=== PATIENT | female | born 1960 | race Caucasian/White ===

== ENCOUNTER 2020-02-15 15:20 | Outpatient (CLI) | payer BC, SELFPAY ==
--- NOTE | ~2020-02-15 | MM_ITS ---
EXAMINATION: MM scrn merritt implant BI w snow HISTORY: Screening mammogram TECHNIQUE: Craniocaudal and mediolateral oblique 3-D tomosynthesis images with implant displacement a nd synthetic 2-D images were generated. Craniocaudal and mediolateral oblique views of the breasts wi thout implant displacement were obtained using full field digital mammography. CAD analysis was submi tted and interpreted. COMPARISON: 12/02/2018, 11/23/2017, 03/30/2016 bilateral implant screening mammogram examinations BREAST PARENCHYMAL COMPOSITION: The breasts are almost entirely fatty. FINDINGS: Status post bilateral augmentation mammoplasty. There is no evidence of suspicious mass, ca lcification, or architectural distortion to suggest malignancy in either breast. There has been no morejon spicious interval change. IMPRESSION: 1. No mammographic evidence of malignancy. 2. Recommend routine screening mammography in one year. BI-RADS Category 1: Negative Reviewed, dictated and finalized at location A.
== END 2020-02-15 15:21 | disposition home or self-care (01) ==
LOC: ANHIMG 15:23
PROVIDERS: PCP Family Medicine; Visit Provider Student in an Organized Health Care Education/Training Program
DX: Z12.31 Encounter for screening mammogram for malignant neoplasm of breast (principal)
CPT/HCPCS: 77063; 77067

== ENCOUNTER 2020-04-29 07:43 | Outpatient (CLI) | payer BC, SELFPAY ==
--- NOTE | ~2020-04-29 | DEXA_ITS ---
Bone Density Report Name: Shannon Long Age: 60 Sex: Female Ethnicity: White Date of : 1960 Indication: postmenopausal; hysterectomy; Referring Provider: Tiara Ch Study: Bone densitometry was performed. Exam Date: April 29, 2020 Accession number: [id number] Bone Density: Region BMD T-score Z-score Classification AP Spine (L1-L4) 1.214 1.5 2.8 Normal Femoral Neck (Right) 0.758 -0.8 0.4 Normal Total Hip (Right) 0.946 0.0 0.9 Normal World Health Organization criteria for BMD impression classify patients as: Normal (T-score at or above -1.0), Osteopenia (T-score between -1.0 and -2.5), or Osteoporosis (T-score at or below -2.5). 10-year Fracture Risk: FRAX not reported because: All T-scores for Spine Total, Hip Total, Femoral Neck at or above -1.0 Previous Exams: Region Exam Age BMD T-score BMD Change BMD Change Date g/cm2 vs Baseline vs Previous AP Spine(L1-L4) 04/29/2020 60 1.214 1.5 0.169(16.1%)# 0.032(2.7%)* 04/18/2018 58 1.182 1.2 0.137(13.1%)# 0.035(3.1%)* 03/30/2016 56 1.147 0.9 0.102(9.7%)# 0.102(9.7%)# 11/29/2007 47 1.045 0.0 Total Hip(Right) 04/29/2020 60 0.946 0.0 0.044(4.8%)# -0.009(-1.0%) 04/18/2018 58 0.955 0.1 0.053(5.9%)# 0.014(1.5%) 03/30/2016 56 0.941 0.0 0.039(4.3%)# 0.039(4.3%)# 11/29/2007 47 0.902 -0.3 *Denotes significance at 95% confidence level, LSC for AP Spine = 0.022 g/cm2, LSC for Total Hip = 0.027 g/cm2 Clinical Information Provided by Patient: Has used the following medications: HRT (i.e. estrogen/hormone therapy), Calcium Has the following medical conditions: Hysterectomy Patient maximum height was 62.5 Menopause Age: 44 Drinks caffeinated beverages Onset of menses at age 16 Number of children 2 Impression: The patient has normal bone mass. No significant bone loss was observed. Discussion: BONE DENSITY IS ABOVE THE MINIMUM DESIRABLE LEVEL AT ALL SKELETAL SITES TESTED. This patient?s bone mineral density is above the minimum desirable level (T-score -1.0 or better) at all sites measured. The patient should follow a healthful lifestyle (good nutrition with adequate calcium and vitamin D, and appropriate weight-bearing exercise). Follow-Up: Consider repeating this study in 5 years or sooner if there is some new clinical indication. Reported by: JUD on 04/29/2020 8:25:00 AM. Reviewed, dictated and finalized at location Jean Claude GONSALES
== END 2020-04-29 07:44 | disposition home or self-care (01) ==
PROVIDERS: PCP Family Medicine; Visit Provider Student in an Organized Health Care Education/Training Program
DX: Z78.0 Asymptomatic menopausal state (principal)
CPT/HCPCS: 77080

== ENCOUNTER 2020-06-18 06:33 | Outpatient (CLI) | payer BC, SELFPAY ==
--- NOTE | ~2020-06-18 | XR_ITS ---
XR shoulder RT min 2V DATE: 06/18/2020 06:58 INDICATION: Bilateral shoulder pain for months. No injury. TECHNIQUE: 4 views of right shoulder COMPARISON: None FINDINGS: There is mild degenerative change of the right acromioclavicular joint. No fracture or disl ocation, periosteal reaction or bone destruction or abnormal soft tissue calcification. There is moderate dextroscoliosis of the upper thoracic spine IMPRESSION: Mild degenerative change at right acromioclavicular joint Reviewed, dictated and finalized at location A.
--- NOTE | ~2020-06-18 | XR_ITS ---
XR shoulder LT min 2V DATE: 06/18/2020 06:59 INDICATION: Bilateral shoulder pain for months. No injury. TECHNIQUE: 4 views COMPARISON: None FINDINGS: There is mild thoracic scoliosis. There is mild degenerative change of the left acromion clavicular joint. No fracture or dislocation, periosteal reaction or bone destruction or abnormal soft tissue calcifica tion of the left shoulder. IMPRESSION: Mild degenerative change at left acromioclavicular joint Thoracic scoliosis Reviewed, dictated and finalized at location A.
== END 2020-06-18 06:34 | disposition home or self-care (01) ==
PROVIDERS: PCP Family Medicine; Visit Provider Chiropractor
DX: M19.011 Primary osteoarthritis, right shoulder (principal); M19.012 Primary osteoarthritis, left shoulder; M41.9 Scoliosis, unspecified
CPT/HCPCS: 73030

== ENCOUNTER 2020-09-02 07:03 | Outpatient (CLI) | payer BC, SELFPAY ==
--- NOTE | ~2020-09-02 | XR_ITS ---
EXAMINATION: XR foot LT standing 2V EXAM DATE: 09/02/2020 07:27 INDICATION: M25.9 - Joint disorder, unspecified. TECHNIQUE: Frontal and lateral projections of the left foot. Correlation is made to contralateral fo ot same date. FINDINGS: There is mild left 1st metatarsophalangeal joint primary osteoarthritis. Small inferior c alcaneal spur. Pes planus. There are no acute fractures or dislocations identified. There is no subc utaneous gas. The soft tissue is unremarkable. There are no radiopaque foreign bodies. IMPRESSION: 1. 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 2. Pes planus. Reviewed, dictated and finalized at location B. MODEL
--- NOTE | ~2020-09-02 | XR_ITS ---
EXAMINATION: XR foot RT standing 2V EXAM DATE: 09/02/2020 07:27 INDICATION: M25.9 - Joint disorder, unspecified pain in rt foot lateral. TECHNIQUE: Frontal and lateral projections of the right foot. Correlation is made to contralateral f oot same date. FINDINGS: Surgical changes at the 1st metatarsophalangeal joint, prior osteotomies probably correcti ng hallux and/or bunion. Correlate with prior history. There is severe osteoarthritis (probably secon stanley) at this joint. Small inferior calcaneal spur. Subacute right 3rd proximal phalangeal shaft fracture without displacement. IMPRESSION: 1. Right 3rd proximal phalangeal shaft subacute fracture. 2. 1st MTP severe osteoarthritis, surgical changes. Reviewed, dictated and finalized at location B. E TAILER
== END 2020-09-02 07:04 | disposition home or self-care (01) ==
PROVIDERS: PCP Family Medicine; Visit Provider Internal Medicine
DX: M19.072 Primary osteoarthritis, left ankle and foot (principal); M19.071 Primary osteoarthritis, right ankle and foot; S92.511A Displaced fracture of proximal phalanx of right lesser toe(s), initial encounter for closed fracture; X58.XXXA Exposure to other specified factors, initial encounter
CPT/HCPCS: 73620

== ENCOUNTER 2020-09-02 13:56 | Outpatient (CLI) | payer BC, SELFPAY ==
[2020-09-02 15:14] LABS: Rheumatoid Factor < 8.6 IU/ML (<12)
[2020-09-04 22:06] LABS: Anti Cyclic Citrullinated Pept <16 Units (<20)
== END 2020-09-02 13:57 | disposition home or self-care (01) ==
LOC: ANHLAB 13:57
PROVIDERS: PCP Family Medicine; Visit Provider Internal Medicine
DX: M19.90 Unspecified osteoarthritis, unspecified site (principal); M25.9 Joint disorder, unspecified; M79.671 Pain in right foot
CPT/HCPCS: 36415; 86200; 86430

== ENCOUNTER 2020-10-10 07:55 | Outpatient (CLI) | payer BC, SELFPAY ==
--- NOTE | 2020-10-10 07:57 | ECG_ITS ---
Measurements Intervals [place] Rate: 71 P: -6 WV: 146 QRS: -11 QRSD: 90 T: -12 QT: 340 QTc: 369 Interpretive Statements SINUS RHYTHM WITH SINUS ARRHYTHMIA VOLTAGE CRITERIA FOR LVH BORDERLINE T WAVE ABNORMALITY- INFERIOR LEADS BASELINE ARTIFACT- I, II, III, AVR, AVL, AVF BORDERLINE ECG Electronically Signed On 10-10-2020 9:06:54 IT SECURITY SPECIALIST by Ace Tobin D.O.
== END 2020-10-10 07:56 | disposition home or self-care (01) ==
LOC: ANHSURGERY 07:57
PROVIDERS: Family Provider Family Medicine; PCP Family Medicine; Visit Provider Orthopaedic Surgery
DX: E78.00 Pure hypercholesterolemia, unspecified (principal); I49.9 Cardiac arrhythmia, unspecified
CPT/HCPCS: 93005

== ENCOUNTER 2020-10-12 00:46 | Outpatient (CLI) | payer BC, SELFPAY ==
[2020-10-12 18:46] LABS: SARS-CoV-2 RNA PCR Negative
== END 2020-10-12 00:47 | disposition home or self-care (01) ==
LOC: ANHCOVIDDT 00:46
PROVIDERS: Family Provider Family Medicine; PCP Family Medicine; Visit Provider Orthopaedic Surgery
DX: Z01.812 Encounter for preprocedural laboratory examination (principal); Z20.822 Contact with and (suspected) exposure to COVID-19; M75.41 Impingement syndrome of right shoulder
CPT/HCPCS: C9803; U0003; U0005

== ENCOUNTER 2020-10-15 01:36 | Day surgery (SDC) | payer BC, SELFPAY ==
[2020-10-09 16:01] VITALS: BMI 24.0
--- NOTE | 2020-10-14 14:27 | WPDANESEPPF ---
Anes - Initial Pre Proc Eval Procedure: Operation Date: 10/15/20 08:30 Proposed Procedures p Arthroscopic Subacromial Decompression Right Shoulder - López Ortez MD Date/Time: 10/14/20 14:27 Surgeon: López Ortez MD Pre Op Diagnosis: Impingement Syndrome of the Right Shoulder Patient Data Age: 60 Gender: F Height: 1.63 m Weight: 63.63 kg Allergies Allergy/AdvReac Type Severity Reaction Status Date / Time No Known Allergies Allergy Verified 10/15/20 06:54 Home Medications Medication Instructions Recorded Confirmed Type esterified 1 tablet PO [id number] 02/13/20 10/09/20 History estrogens-methyltestosterone 0.625 mg-1.25 mg tablet testosterone 75 mg implant pellet 150 mg SUB-Q [id number] 02/13/20 10/09/20 History paroxetine HCl 12.5 mg 12.5 mg PO QPM tablet 08/30/20 10/15/20 History tablet,extended release 24 hr atorvastatin 10 mg tablet 10 mg PO DAILY 09/03/20 10/15/20 History thyroid (pork) 60 mg tablet 60 mg PO DAILY 09/03/20 10/15/20 History B Complex-Vitamin B12 1 tablet PO DAILY 10/09/20 10/15/20 History Patient hx anesthesia problems: none Family hx anesthesia problems: none PMFSH Past Medical History Medical History (Updated 09/25/20 @ 14:21 by López Ortez MD) Chronic depression Diverticulosis of colon (without mention of hemorrhage) Encounter for gynecological examination (general) (routine) without abnormal findings Endometriosis, site unspecified Foot pain, right Ganglion, left hand History of vaginal delivery x 2 Mixed hyperlipidemia Postmenopausal Vaginal dryness, menopausal Vaginal dryness, menopausal Surgical History Surgical History (Updated 09/25/20 @ 13:52 by Lindsey Dozier) History of breast augmentation (~2011) History of cholecystectomy History of hip replacement (~2007) Left History of left salpingo-oophorectomy History of total hysterectomy Hx of abdominoplasty (~2017) Family History Family History Father Family history of hypercholesterolemia Hypertension Family history of alcoholism Grandparent Hypertension Family history of alcoholism Cerebrovascular accident Family history of malignant neoplasm of breast Social History Social History Smoking status: Never smoker Second hand tobacco smoke exposure: No Alcohol intake: never Substance use: never Living arrangements: with family Spiritual care concerns: No Anes - Eval Final PreProcedure Day of Procedure 10/14/20 14:27 Patient weight: normal Heart: regular rate and rhythm Lungs: clear to auscultation and normal air movement Airway: Mallampati scale class II Neurological: alert and oriented Last oral intake: >/= 8 hours ASA classification: II Emergent: no Anesthetic plan: proceed Anesthesia type and monitoring: general ETT Informed Consent: The patient's anesthetic plan and its attendant risks and benefits were discussed with the patient/family/POA. Questions were solicited and answers provided to the satisfaction of the patient/family/POA.
--- NOTE | 2020-10-14 14:47 | WPDANESPNB ---
Anes - Peripheral Nerve Block Date/Time: 10/14/20 14:47 I have discussed with the patient/family/POA the placement of a peripheral nerve block for post-operative pain management, including associated risks, benefits, complications, and side effects. Alternative methods of post-operative analgesia were detailed. Questions were solicited and answers provided to the satisfaction of the patient/family/POA. Time-Out: A pre-procedural Time-Out was completed immediately before starting the procedure and confirmed: Patient Identification, Site, Procedure, Patient Position and the Availability of Requisite Equipment. Clinical Indications: Acute post-operative pain management requested by the operative surgeon. Nerve Block Insertion Note Anes-nerve block: supraclavicular right Patient position: supine Skin prep: chlorhexidine Needle: 22 gauge, stimulating, insulated echogenic needle. Needle length: 80 mm Technique: ultrasound (in plane) Injectate: bupivacaine 0.5% with epi 5 mcg/ml (20cc) Observations: tolerated well Complications: none Procedure start time:: 845 Procedure end time:: 850
[2020-10-15] VITALS (8 sets, daily range): BP systolic 102–112; BP diastolic 51–91; PULSE 70–94; RESP 13–20; TEMP 36–36.5; O2SAT 95–100
[2020-10-15] MEDS: KETOROLAC 15 MG/ML VIAL (*BKC) IV PUSH (06:40)
[2020-10-15] MEDS: ACETAMINOPHEN 500 MG TABLET 1000 MG PO (06:40)
[2020-10-15] MEDS: LACTATED RINGERS 1,000 ML 30 ML IV CONT ×2 (06:41→10:55)
--- NOTE | 2020-10-15 08:50 | WPDHPUPDATE1 ---
History and Physical Update Update Date/Time: 10/15/20 08:50 <AMY Levine - Last Filed: 10/15/20 08:50> History and Physical has been reviewed, including an updated exam of the patient. There are NO changes in the patient's condition. Risks, benefits, and alternatives have been discussed and questions answered. Patient agrees to proceed with procedure. <AMY Levine - Last Filed: 10/15/20 08:50>
--- NOTE | 2020-10-15 08:54 | WPDHPUPDATE1 ---
History and Physical Update Update Date/Time: 10/15/20 08:54 History and Physical has been reviewed, including an updated exam of the patient. There are NO changes in the patient's condition. Risks, benefits, and alternatives have been discussed and questions answered. Patient agrees to proceed with procedure.
[2020-10-15] MEDS: ceFAZolin 2 GM/D5W 50 ML 2 GM/50 ML BAG IVPB (08:58)
--- NOTE | 2020-10-15 13:06 | PM.PROC ---
Procedure Note - Detailed Date of procedure: 10/15/20 Pre-op diagnosis: Impingement Syndrome of the Right Shoulder Post-op diagnosis: other (1. Small complete rotator cuff tear 2. Impingment syndrome) Procedure performed: 1. Arthrosocopic rotator cuff repair. 2. Arthroscopic subacromial decompression. Description of procedure: The articular rotator cuff showed it 50% tear at the anterior supraspinatus. Grade 3 tear. Biceps was healthy with despite grade 1 superior labral degenerative tearing. The subscapularis and remaining rotator cuff were normal. The glenohumeral articular cartilage was normal. No capsulitis. After marking the supraspinatus partial tear, attention was turned to the bursal side. The tendon was quite soft and friable. It was easy to create a small rent at the weak point. It was felt that completing the tear and providing repair would be optimal. Three sutures were passed through a single bone tunnel created arthroscopically. The tendon appeared quite anatomic after repair. Subacromial decompression was performed with the arthroscopic bur. Significant spur and downsloping of the acromion was observed. Anesthesia: GLMA and regional Surgeon: López Ortez MD Clinical Safety Manager: Elysia Garcia PA-C Estimated blood loss (mL): 20 Complications: None Condition: stable Disposition: PACU Findings: Physician assistant store leader, Elysia Garcia PA-C, required for surgery; including patient positioning, draping, arthroscopic camera operation, maintaining instrument position, suture retrieval, wound closure, and dressing and sling placement. Operative detail: Preoperative antibiotics were given. An interscalene block was administered in the preoperative area. The patient was bought brought to the operating room. A general anesthetic was administered. The patient was carefully positioned in the lateral decubitus position. The head and neck were carefully positioned. The non operative extremity was also carefully positioned. The shoulder was prepped and draped in the usual sterile fashion. Examination was performed. Standard posterior and anterior arthroscopic portals were established. Inflow achieved with the arthroscopic pump using saline and epinephrine. The glenohumeral joint was carefully inspected. The superior labrum had grade 1 degenerative tearing. Gentle debridement was performed the biceps anchor was felt to be quite stable. Attention was turned to the subacromial space. A complete bursectomy was performed. the marked position of the articular tear was confirmed to be quite soft at the central aspect. The tear was completed at this location quite easily. The foot print was exposed and the overall defect was just large enough for the shaver to fit through. An acromioplasty was performed. At this point, 1 tunnel was created at the rotator cuff. The ArthroTunneler technique was utilized. Three sutures were passed through the tunnel. All sutures were then passed through the cuff tissue. The sutures were tied arthroscopically. The arthroscopic instruments were removed. The wounds were closed with 3-0 Monocryl subcuticular suture and steri strips. There were no complications. A sling was applied and the patient brought to the recovery room.
== END 2020-10-15 13:00 | disposition home or self-care (01) ==
PROVIDERS: Family Provider Family Medicine; PCP Family Medicine; Visit Provider Orthopaedic Surgery
PROC: (CPT 29805; principal; 2020-10-15 08:30)
DX: M75.41 Impingement syndrome of right shoulder (principal); M75.101 Unspecified rotator cuff tear or rupture of right shoulder, not specified as traumatic; G89.18 Other acute postprocedural pain; E78.2 Mixed hyperlipidemia; F32.9 Major depressive disorder, single episode, unspecified
CPT/HCPCS: 29827; 29826; 64415; A4565; A9270; J0690; J1100; J1885; J2250; J2405; J2704; J3010; J7120

== ENCOUNTER 2021-01-27 08:15 | Outpatient (RCR) | payer BC, SELFPAY ==
[2020-10-30 09:47] VITALS: BP_SYST 70
--- NOTE | 2020-10-30 11:09 | PTOPEVAL ---
Thank you for referring Shannon Long to [facility].? The patient is scheduled to be seen for therapy? 2 x/week for 10 weeks. Please review, sign, date and return this plan of care MAISHA. I agree with and certify that the following plan of care is medically necessary. Referring Physician Date Attending Provider: López Ortez MD Physical therapy evaluation Problem Diagnosis right shoulder impingement and RTC tear Onset 10/15/20 Cause 1 yr Additional Evaluation Detail right shoulder s/p decompression and RTC repair she attended 2 visits when in [place]. Rx consisted of PROM and pendulum. She is performing pendulum at home. Subjective Information She was being treated for neck Query Text:As Reported By Patient/ pain with injections. She had Family a MRI that determined pain was from the shoulder. She is limited with all UE function with the right UE. She denies problems with sleeping. 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 She requires assistance with ADL's and IADL's. She is not driving due to sling. She is to wear the sling for an additional 4 wks. She does walking, bike and TM for fitness program. Pain Assessment Right Shoulder(s) Reported Pain Level 0 Pain Frequency Acute,Intermittent Lowest Pain Intensity 0 Greatest Pain Intensity 8 Pain Aggravating Factors ADL's,Lifting,Other Pain Aggravating Factors Upper Extremity Range of Motion Scapular/ Shoulder Range of Motion Right Shoulder Flexion - Active 85 Shoulder Flexion - Passive 90 Shoulder Extension - Active 30 Shoulder Abduction - Active 52 Shoulder Abduction - Passive 70 Shoulder Medial Rotation - Active 50 Shoulder Lateral Rotation - Active 15 Scapular/Shoulder Range of Motion Pain,Soft Tissue Restriction Limitations Scapular/Shoulder Range of Motion rotation measured with UE in Comments neutral PROM measured in supine poor scapulothoracic movement pattern, poor G
--- NOTE | 2020-12-03 09:48 | PCPTNOTE ---
Patient called & cancelled scheduled appointment this date due to being sick. Will contact her to reschedule her re-eval.
[2020-12-05 07:15] VITALS: BP_SYST 128
[2021-01-09 07:32] VITALS: BP_SYST 175
--- NOTE | 2021-01-09 10:27 | PTOPEVAL ---
Thank you for referring Shannon Long to [facility]. Shannon has attended 21 therapy visits to address her UE impairments related to her shoulder surgery. She is progressing towards her therapy goals. She requires additional skilled therapy services to improve UE function.? The patient is scheduled to be seen for therapy 2 x/week for 5 weeks. Please review, sign, date and return this plan of care MAISHA. I agree with and certify that the following plan of care is medically necessary. Referring Physician Date Attending Provider: López Ortez MD Physical Therapy progress note Diagnosis right shoulder impingement and RTC tear Onset 10/15/20 Cause 1 yr Additional Evaluation Detail right shoulder s/p decompression and RTC repair she attended 2 visits when in [place]. Rx consisted of PROM and pendulum. She is performing pendulum at home. Subjective Information She denies any soreness of the Query Text:As Reported By Patient/ shoulder. She does feel like Family the shoulder is moving slightly better. She has cont to have decreased motion reaching behind her back. She states the arm does not feel as heavy. Pain Assessment Self Report Pain Level 0 Upper Extremity Range of Motion Scapular/ Shoulder Range of Motion Right Shoulder Flexion - Active 160 Shoulder Flexion - Passive 170 Shoulder Extension - Active 45 Shoulder Abduction - Active 150 Shoulder Abduction - Passive 175 Shoulder Medial Rotation - Active 65 Shoulder Medial Rotation - Passive 70 Shoulder Medial Rotation - Active T10 Query Text:Reach Behind the Back Shoulder Lateral Rotation - Active 50 Shoulder Lateral Rotation - Passive 50 Shoulder Lateral Rotation - Active C6 Query Text:Reach Behind the Head Scapular/Shoulder Range of Motion Soft Tissue Restriction Limitations Scapular/Shoulder Range of Motion rotation measured with UE with Comments shoulder 45 abduction PROM measured in supine poor scapulothoracic movement pattern, poor GH inf glide pattern Upper Extremity Muscle Strength Testing Scapular/Shoulder Right Scapular Retraction - Rhomboid 3 Fair Scapular Retraction - Middle Trapezius 3- Fair - Shoulder Flexion Strength 3+ Fair + Shoulder Extension Strength 4+ Good + Shoulder Abduction Strength 3+ Fair + Shoulder Medial Rotation Strength 4+ Good + Shoulder Lateral Rotation Strength 4 Good Post
--- NOTE | 2021-01-28 10:54 | PCPTNOTE ---
This treatment is being continued on visit number 26 to [id number]. Please see documentation on both accounts to view progress. Completed interventions, outcomes, and problems have been marked as Inactive to facilitate the copying of the Care plan routine for recurring accounts.
== END 2021-01-28 10:10 | disposition home or self-care (01) ==
LOC: ANHPT 08:15
PROVIDERS: PCP Family Medicine; Visit Provider Orthopaedic Surgery
DX: Z48.89 Encounter for other specified surgical aftercare (principal)
CPT/HCPCS: 97014; 97110; 97140; 97161; G0283

== ENCOUNTER 2021-02-13 07:30 | Outpatient (RCR) | payer BC, SELFPAY ==
[2021-01-28 10:11] VITALS: BP_SYST 175
--- NOTE | 2021-01-28 10:56 | PCPTNOTE ---
The treatment documented on this account is a continuation of the treatment documented on visit number 26 to [id number]. Please see documentation on both accounts to view progress. The Plan of Care has been transitioned and updated within the new V#. I have addressed and agree with the discipline specific Problems, Interventions, and Goals for the current certification period. Completed interventions, outcomes, and problems have been marked as Inactive to facilitate the copying of the Care plan routine for recurring accounts.
--- NOTE | 2021-02-13 08:17 | PTOPEVAL ---
Thank you for referring Shannon Long to [facility].? Shannon has received 26 therapy visits to address right shoulder impairments related to shoulder surgery. She demonstrates normal shoulder motion and strength. She is able to perform normal daily activities without limitations. She has achieved her therapy goals at this time. Will DC skilled therapy services with Shannon to continue with home program. Please review, sign, date and return this discharge summary MAISHA. I agree with and certify that the following plan of care is medically necessary. Referring Physician Date Attending Provider: López Ortez MD Physical therapy discharge note Diagnosis right shoulder impingement and RTC tear Onset 10/15/20 Cause 1 yr Additional Evaluation Detail right shoulder s/p decompression and RTC repair Subjective Information She denies any problems with Query Text:As Reported By Patient/ right shoulder with daily Family activities. She has not tried target practice shooting or throwing objects. She denies any limitations with reaching in all directions. Denies any limitations with yardwork task . Pain Assessment Timing of Pain Assessment Timing of Pain Assessment Pre-Treatment Self Report Self Report Pain Level 0 Pain Score Pain Score 0: Self Report Upper Extremity Range of Motion Scapular/ Shoulder Range of Motion Right Shoulder Flexion - Active 170 Shoulder Extension - Active 55 Shoulder Abduction - Active 170 Shoulder Medial Rotation - Active 78 Shoulder Medial Rotation - Active T9 Query Text:Reach Behind the Back Shoulder Lateral Rotation - Active 78 Shoulder Lateral Rotation - Active T2 Query Text:Reach Behind the Head Scapular/Shoulder Range of Motion soreness at end range Comments Upper Extremity Muscle Strength Testing Scapular/Shoulder Right Scapular Retraction - Middle Trapezius 3+ Fair + Scapular Retraction - Lower Trapezius 3+ Fair + Shoulder Flexion Strength 4+ Good + Shoulder Extension Strength 5 Normal Shoulder Abduction Strength 5 Normal Shoulder Medial Rotation Strength 5 Normal Shoulder Lateral Rotation Strength 5 Normal Palpation Assessment Palpation no tightness and tenderness of right GH and scapular region or pec region PT Clinical Summary Pt referred to therapy following s/p right shoulder decompression and RTC repair surgery on 10/15/20. She has attended 271 therapy visits
== END 2021-02-13 10:54 | disposition home or self-care (01) ==
LOC: ANHPT 07:30
PROVIDERS: PCP Family Medicine; Visit Provider Orthopaedic Surgery
DX: Z48.89 Encounter for other specified surgical aftercare (principal)
CPT/HCPCS: 97110

== ENCOUNTER 2021-02-27 09:32 | Outpatient (CLI) | payer BC, SELFPAY ==
--- NOTE | ~2021-02-27 | MM_ITS ---
EXAMINATION: MM scrn merritt implant BI w snow HISTORY: Screening mammogram TECHNIQUE: Craniocaudal and mediolateral oblique 3-D tomosynthesis images with implant displacement a nd synthetic 2-D images were generated. Craniocaudal and mediolateral oblique views of the breasts wi thout implant displacement were obtained using full field digital mammography. CAD analysis was submi tted and interpreted. COMPARISON: 02/15/2020, 12/02/2018, 11/23/2017 BREAST PARENCHYMAL COMPOSITION: The breasts are almost entirely fatty. FINDINGS: There is no evidence of suspicious mass, calcification, or architectural distortion to sugg est malignancy in either breast. There has been no suspicious interval change. IMPRESSION: 1. No mammographic evidence of malignancy. 2. Recommend routine screening mammography in one year. BI-RADS Category 1: Negative Reviewed, dictated and finalized at location A.
== END 2021-02-27 09:33 | disposition home or self-care (01) ==
LOC: ANHIMG 09:34
PROVIDERS: PCP Family Medicine; Visit Provider Student in an Organized Health Care Education/Training Program
DX: Z12.31 Encounter for screening mammogram for malignant neoplasm of breast (principal)
CPT/HCPCS: 77063; 77067

== ENCOUNTER 2021-05-06 06:44 | Outpatient (CLI) | payer BC, SELFPAY ==
[2021-05-06 08:26] LABS: Hepatitis C Virus Antibody Negative (Negative)
[2021-05-06 08:44] LABS: Ferritin 8.75 ng/mL (11.1-264); Vitamin D 25 Hydroxy 66.9 ng/mL
[2021-05-06 15:07] LABS: Basophils Absolute Auto 0.1 K/mm3 (0.0-0.1); Basophils Percent Auto 0.7 % (0.2-1.2); Eosinophils Absolute Auto 0.2 K/mm3 (0-0.3); Eosinophils Percent Auto 2.7 % (0-4.4); Hemoglobin 12.3 g/dL (12.0-15.0); Immature Granulocyte Absolute 0.03 K/mm3 (0.00-0.031); Immature Granulocyte Percent A 0.4 % (0-0.5); Immature Reticulocyte Fraction 9.7 % (3.0-15.9); Lymphocytes Absolute Auto 1.39 K/mm3 (0.9-3.2); Lymphocytes Percent Auto 20.7 % (18.3-44.2); Mean Corpuscular HGB Conc 33.2 g/dl (32-36); Mean Corpuscular Hemoglobin 30.9 pg (26-34); Mean Platelet Volume 9.5 fl (7.4-10.4); Monocytes Absolute Auto 0.6 K/mm3 (0.1-0.6); Monocytes Percent Auto 9.4 % (2.6-8.5); Neutrophils Absolute Auto 4.4 K/mm3 (1.3-6.7); Neutrophils Percent Auto 66.1 % (45.5-73.1); Platelet Count Result 249 k/mm3 (150-375); Red Blood Count 3.98 M/mm3 (4.2-5.4); Red Cell Distribution Width 12.4 % (11.5-14.5); Reticulocyte Hemoglobin Conten 33.1 pg (28.2-35.7); Reticulocyte Percent 1.68 % (0.7-4.3); Reticulocytes Absolute 0.07 B/L (32.2-175.7); White Blood Count 6.7 K/mm3 (4.5-10.0)
[2021-05-12 20:32] LABS: Gliadin AB, IgG 3 Units (<20); Reticulin IgA Negative (Negative); TTG IGA AB 1 U/mL (<4)
== END 2021-05-06 06:45 | disposition home or self-care (01) ==
PROVIDERS: PCP Family Medicine; Visit Provider Family Medicine
DX: E61.1 Iron deficiency (principal); D64.9 Anemia, unspecified; Z79.899 Other long term (current) drug therapy; Z11.59 Encounter for screening for other viral diseases
CPT/HCPCS: 36415; 82306; 82607; 82728; 83516; 85025; 85046; 86255; 86803

== ENCOUNTER 2021-06-12 01:21 | Day surgery (SDC) | payer BC, SELFPAY ==
[2021-05-29 14:15] VITALS: BMI 26.5
--- NOTE | 2021-06-11 14:24 | PM.HPGS ---
History of Present Illness History of Present Illness Consent: Risks, benefits, and alternatives have been discussed and questions answered. Patient agrees to proceed with procedure. Chief complaint: anemia Narrative: Shannon Long is a 61 year old female who has been found to be anemic. She denies seen blood in her stools Review of Systems Review of Systems: All systems reviewed & are unremarkable except as noted in HPI and below PMFSH Past Medical History Medical History Chronic depression Diverticulosis of colon (without mention of hemorrhage) Encounter for gynecological examination (general) (routine) without abnormal findings Endometriosis, site unspecified Foot pain, right Ganglion, left hand History of vaginal delivery x 2 Mixed hyperlipidemia Postmenopausal Vaginal dryness, menopausal Vaginal dryness, menopausal Surgical History Surgical History History of arthroscopy of right shoulder (~10/2020) History of breast augmentation (~2011) History of cholecystectomy History of hip replacement (~2007) Left History of left salpingo-oophorectomy History of total hysterectomy Hx of abdominoplasty (~2017) Family History Family History Father Family history of hypercholesterolemia Hypertension Family history of alcoholism Grandparent Hypertension Family history of alcoholism Cerebrovascular accident Family history of malignant neoplasm of breast Social History Social History Second hand tobacco smoke exposure: No Alcohol intake: never Substance use: never Substance use type: does not use Living arrangements: with family Spiritual care concerns: No Meds Home Medications and Allergies Home Medications Medication Instructions Recorded Confirmed Type esterified 1 tablet PO [id number] 02/13/20 05/29/21 History estrogens-methyltestosterone 0.625 mg-1.25 mg tablet testosterone 75 mg implant pellet 150 mg SUB-Q [id number] 02/13/20 05/29/21 History B Complex-Vitamin B12 1 tablet PO DAILY 10/09/20 05/29/21 History paroxetine HCl 12.5 mg See Rx Instructions .ROUTE 02/24/21 05/29/21 Rx tablet,extended release 24 hr .COMPLEX #90 tablet estradiol 4 mcg vaginal insert See Rx Instructions VAGINAL PER 03/04/21 05/29/21 Rx PKG DIR #8 insert calcium carbonate 600 mg (1,500 1 cap PO BID cap 04/01/21 05/29/21 History mg)-vitamin D3 500 unit capsule famotidine 20 mg tablet 20 mg PO BID tablet 04/01/21 05/29/21 History spironolactone 100 mg tablet 100 mg PO BID 04/01/21 05/29/21 History thyroid (pork) 90 mg tablet 90 mg PO DAILY 04/01/21 05/29/21 History ferrous fumarate 324 mg (106 mg 324 mg PO DAILY #90 tablet 05/14/21 05/29/21 Rx iron) tablet atorvastatin 10 mg tablet See Rx Instructions .ROUTE 05/20/21 05/29/21 Rx .COMPLEX #90 tablet Allergies Allergy/AdvReac Type Severity Reaction Status Date / Time No Known Allergies Allergy Verified 06/12/21 07:44 Exam Resp: Auscultation: clear to auscultation bilaterally Cardio: Rate: regular rate Rhythm: regular rhythm GI: GI Palp: Yes Soft to palpation and No Tenderness to palpation present (GI) Assessment and Plan Assessment and plan (1) Anemia: Code(s): D64.9 - Anemia, unspecified Status: Acute Assessment and Plan: EGD with possible biopsy or dilatation or cautery.Colonoscopy with possible biopsy or polypectomy or cautery or injection of substances.
[2021-06-12 07:46] VITALS: BP 116/74; PULSE 89; RESP 20; TEMP 36.3; O2SAT 100; BMI 26.9
[2021-06-12] MEDS: LACTATED RINGERS 1,000 ML 150 ML IV CONT (07:53)
--- NOTE | 2021-06-12 08:33 | WPDANESEPPF ---
Anes - Initial Pre Proc Eval Procedure: Operation Date: 06/12/21 09:00 Proposed Procedures p Esophagogastroduodenoscopy & Colonoscopy - Mark Harley MD Date/Time: 06/12/21 08:33 Surgeon: Mark Harley MD Pre Op Diagnosis: anemia Patient Data Age: 61 Gender: F Height: 1.57 m Weight: 66.8 kg Last Vital Signs Temp 97.3 F L 06/12/21 07:46 Pulse 89 06/12/21 07:46 Resp 20 06/12/21 07:46 BP 116/74 06/12/21 07:46 Pulse Ox 100 06/12/21 07:46 Allergies Allergy/AdvReac Type Severity Reaction Status Date / Time No Known Allergies Allergy Verified 06/12/21 07:44 Home Medications Medication Instructions Recorded Confirmed Type esterified 1 tablet PO [id number] 02/13/20 05/29/21 History estrogens-methyltestosterone 0.625 mg-1.25 mg tablet testosterone 75 mg implant pellet 150 mg SUB-Q [id number] 02/13/20 05/29/21 History B Complex-Vitamin B12 1 tablet PO DAILY 10/09/20 05/29/21 History paroxetine HCl 12.5 mg See Rx Instructions .ROUTE 02/24/21 05/29/21 Rx tablet,extended release 24 hr .COMPLEX #90 tablet estradiol 4 mcg vaginal insert See Rx Instructions VAGINAL PER 03/04/21 05/29/21 Rx PKG DIR #8 insert calcium carbonate 600 mg (1,500 1 cap PO BID cap 04/01/21 05/29/21 History mg)-vitamin D3 500 unit capsule famotidine 20 mg tablet 20 mg PO BID tablet 04/01/21 05/29/21 History spironolactone 100 mg tablet 100 mg PO BID 04/01/21 05/29/21 History thyroid (pork) 90 mg tablet 90 mg PO DAILY 04/01/21 05/29/21 History ferrous fumarate 324 mg (106 mg 324 mg PO DAILY #90 tablet 05/14/21 05/29/21 Rx iron) tablet atorvastatin 10 mg tablet See Rx Instructions .ROUTE 05/20/21 05/29/21 Rx .COMPLEX #90 tablet Patient hx anesthesia problems: none Family hx anesthesia problems: none Results Review: All pre-operative results and documents have been reviewed as part of the pre-operative evaluation. PMFSH Past Medical History Medical History Chronic depression Diverticulosis of colon (without mention of hemorrhage) Encounter for gynecological examination (general) (routine) without abnormal findings Endometriosis, site unspecified Foot pain, right Ganglion, left hand History of vaginal delivery x 2 Mixed hyperlipidemia Postmenopausal Vaginal dryness, menopausal Vaginal dryness, menopausal Surgical History Surgical History History of arthroscopy of right shoulder (~10/2020) History of breast augmentation (~2011) History of cholecystectomy History of hip replacement (~2007) Left History of left salpingo-oophorectomy History of total hysterectomy Hx of abdominoplasty (~2017) Family History Family History Father Family history of hypercholesterolemia Hypertension Family history of alcoholism Grandparent Hypertension Family history of alcoholism Cerebrovascular accident Family history of malignant neoplasm of breast Social History Social History Second hand tobacco smoke exposure: No Alcohol intake: never Substance use: never Substance use type: does not use Living arrangements: with family Spiritual care concerns: No Anes - Eval Final PreProcedure Day of Procedure 06/12/21 08:33 Patient weight: normal Heart: regular rate and rhythm Lungs: clear to auscultation Airway: Mallampati scale class II Neurological: alert and oriented Last oral intake: >/= 8 hours ASA classification: II Emergent: no Anesthetic plan: proceed Anesthesia type and monitoring: general GIVS and standard monitoring Results Review: All pre-operative results and documents have been reviewed as part of the pre-operative evaluation. Informed Consent: The patient's anesthetic plan and its attendant risks and benefits were discussed with the patient/family/POA. Que
[2021-06-12 09:26] VITALS: BP 98/58; PULSE 75; RESP 27; O2SAT 99
[2021-06-12 09:36] VITALS: BP 101/67; PULSE 85; RESP 21; O2SAT 99
[2021-06-12 09:46] VITALS: BP 117/72; PULSE 72; RESP 22; O2SAT 100
== END 2021-06-12 10:04 | disposition home or self-care (01) ==
PROVIDERS: PCP Family Medicine; Visit Provider Internal Medicine Gastroenterology
PROC: 0DJ08ZZ Inspection of Upper Intestinal Tract, Via Natural or Artificial Opening Endoscopic (ICD-10-PCS; CPT 43235; principal; 2021-06-12 09:00)
DX: D64.9 Anemia, unspecified (principal); K25.9 Gastric ulcer, unspecified as acute or chronic, without hemorrhage or perforation; K64.8 Other hemorrhoids; K57.30 Diverticulosis of large intestine without perforation or abscess without bleeding; E78.2 Mixed hyperlipidemia; F32.9 Major depressive disorder, single episode, unspecified
CPT/HCPCS: 45378; 43239; 87081; 88305; J2704; J7120

== ENCOUNTER 2022-04-01 13:27 | Outpatient (CLI) | payer BC, SELFPAY ==
--- NOTE | ~2022-04-01 | MM_ITS ---
EXAMINATION: MM scrn merritt implant BI w snow HISTORY: Screening mammogram TECHNIQUE: Craniocaudal and mediolateral oblique 3-D tomosynthesis images with implant displacement a nd synthetic 2-D images were generated. Craniocaudal and mediolateral oblique views of the breasts wi thout implant displacement were obtained using full field digital mammography. CAD analysis was submi tted and interpreted. COMPARISON: Comparison to multiple prior studies sequentially, with oldest reviewed study dated 03/28. BREAST PARENCHYMAL COMPOSITION: There are scattered areas of fibroglandular density. FINDINGS: There is no evidence of suspicious mass, calcification, or architectural distortion to sugg est malignancy in either breast. There has been no suspicious interval change. IMPRESSION: 1. No mammographic evidence of malignancy. 2. Recommend routine screening mammography in one year. BI-RADS Category 1: Negative Reviewed, dictated and finalized at location A.
== END 2022-04-01 13:28 | disposition home or self-care (01) ==
LOC: ANHIMG 13:28
PROVIDERS: PCP Family Medicine; Visit Provider Student in an Organized Health Care Education/Training Program
DX: Z12.31 Encounter for screening mammogram for malignant neoplasm of breast (principal)
CPT/HCPCS: 77063; 77067

== ENCOUNTER 2022-04-29 13:55 | Outpatient (CLI) | payer BC, SELFPAY ==
[2022-04-29 18:27] LABS: IFOB Positive Control Positive; Immunochemical Fecal Occult Bl Negative (N)
== END 2022-04-29 13:56 | disposition home or self-care (01) ==
LOC: ANHGOSHLAB 13:57
PROVIDERS: PCP Family Medicine; Visit Provider Family Medicine
DX: Z12.11 Encounter for screening for malignant neoplasm of colon (principal)
CPT/HCPCS: 82274

== ENCOUNTER → 2022-05-11 14:38 | Outpatient (CLI) | payer BC, SELFPAY ==
--- NOTE | ~2022-05-11 | DEXA_ITS ---
Bone Density Report Name: ANGELIA BECERRA Age: 62 Sex: Female Ethnicity: White Date of : 1960 Indication: postmenopausal; screening for osteoporosis; hysterectomy; Referring Provider: Tiara Ch Study: Bone densitometry was performed. Exam Date: May 11, 2022 Accession number: [id number] Bone Density: Region BMD T-score Z-score Classification AP Spine (L1-L4) 1.337 2.6 4.1 Normal Femoral Neck (Right) 0.787 -0.6 0.7 Normal Total Hip (Right) 0.915 -0.2 0.7 Normal World Health Organization criteria for BMD impression classify patients as: Normal (T-score at or above -1.0), Osteopenia (T-score between -1.0 and -2.5), or Osteoporosis (T-score at or below -2.5). 10-year Fracture Risk: FRAX not reported because: All T-scores for Spine Total, Hip Total, Femoral Neck at or above -1.0 Treated for osteoporosis Clinical Information Provided by Patient: Is being treated for osteoporosis Has used the following medications: HRT (i.e. estrogen/hormone therapy), Vitamin D, Calcium, HRT pellets, [place] thyroid Has the following medical conditions: Hysterectomy Patient maximum height was 62.3 Menopause Age: 44 Drinks caffeinated beverages Onset of menses at age 15 Number of children 2 Impression: The patient has normal bone mass. Discussion: It is important to ask patients whether they are taking their medications and to encourage continued and appropriate compliance with their osteoporosis therapies to reduce fracture risk. It is also important to review their risk factors and encourage appropriate calcium and vitamin D intakes, exercise, fall prevention and other lifestyle measures. Follow-Up: Consider a repeat BMD and Vertebral Fracture Assessment (VFA) exam in 2 years or sooner if medically necessary, to reassess this patient's status. Reported by: [facility] on 05/11/2022 3:18:00 PM. Reviewed, dictated and finalized at location A. [facility]
== END ==
PROVIDERS: PCP Family Medicine; Visit Provider Student in an Organized Health Care Education/Training Program
DX: Z78.0 Asymptomatic menopausal state (principal)
CPT/HCPCS: 77080

== ENCOUNTER → 2022-09-24 08:23 | Outpatient (CLI) | payer OTHER, BC, SELFPAY ==
--- NOTE | ~2022-09-24 | MR_ITS ---
EXAMINATION: MR foot LT wo con DATE: 09/24/2022 09:14 INDICATION: Ganglion cyst of the left foot TECHNIQUE: Magnetic resonance imaging (MRI) of the left fore/mid foot was performed without intraveno us contrast. Sequences included sagittal T1-weighted FSE, sagittal fluid sensitive FSE STIR, coronal PD-weighted FS FSE, coronal T1-weighted FSE, axial PD-weighted FS FSE, and axial PD-weighted FSE. COMPARISON: None FINDINGS: Loculated fluid collection surrounding the otherwise normal-appearing extensor digitorum longus tendo n to the great toe in the mid and forefoot beginning at the level of the naviculocuneiform joint and extending 7.6 cm distally to the level of the head of the first metatarsal. The collection measures 3 .0 x 1.4 cm in maximal orthogonal dimensions at the level of the medial cuneiform. There appears to b e a septation extending from the central tendon across the dorsal side of the fluid collection which would favor a ganglion cyst wrapped around the tendon and tendon sheath rather than fluid within the tendon sheath proper. Moderate to severe osteoarthritis with subarticular edema-like signal changes a t the first and second tarsal metatarsal joints. Moderate osteoarthritis at the fourth tarsal metatar rishi joint with additional subarticular edema-like signal change at the cuboid. Moderate osteoarthriti s at the first metatarsophalangeal joint. Mild osteoarthritis at the remaining tarsal metatarsal and many of the interphalangeal joints. Physiologic amount fluid in the joint spaces. Remaining flexor an d extensor tendons are normal. The Lisfranc ligament complex and the collateral ligament complex at t he metatarsophalangeal and interphalangeal joints are normal. Likely age-related mild fatty atrophy o f the intrinsic musculature in the forefoot. IMPRESSION: 1. 7.6 x 3.0 x 1.4 cm ganglion cyst extending along the extensor digitorum longus tendon of the great toe. 2. Polyarticular osteoarthritis, moderate to severe at the first and second tarsal metatarsal joints and moderate at the fourth tarsal metatarsal and first metatarsophalangeal joints. Reviewed, dictated and finalized at location A. [employer] DIRECT[employer] IMPRESSION: 1. 7.6 x 3.0 x 1.4 cm ganglion cyst extending along the extensor digitorum long us tendon of the great toe. 2. Polyarticular osteoarthritis, moderate to severe at the first and second tar rishi metatarsal joints and moderate at the fourth tarsal metatarsal and first me tatarsophalangeal joints.
== END ==
PROVIDERS: PCP Family Medicine; Visit Provider Podiatrist Foot & Ankle Surgery
DX: M67.472 Ganglion, left ankle and foot (principal); M19.072 Primary osteoarthritis, left ankle and foot
CPT/HCPCS: 73718

== ENCOUNTER 2022-11-09 11:14 | Outpatient (CLI) | payer OTHER, BC, SELFPAY ==
--- NOTE | 2022-11-09 11:35 | ECG_ITS ---
Measurements Intervals Clarissa Rate: 72 P: 50 LA: 148 QRS: 43 QRSD: 84 T: 63 QT: 338 QTc: 371 Interpretive Statements SINUS RHYTHM NORMAL ECG COMPARED TO ECG 10/10/2020 08:28:55 NO SIGNIFICANT CHANGES Electronically Signed On 11-09-2022 14:39:53 PATTERN MARKER by Monico Sanchez M.D.
== END 2022-11-09 11:15 | disposition home or self-care (01) ==
PROVIDERS: PCP Family Medicine; Visit Provider Podiatrist Foot & Ankle Surgery
DX: E78.2 Mixed hyperlipidemia (principal); Z01.818 Encounter for other preprocedural examination
CPT/HCPCS: 93005

== ENCOUNTER 2022-11-13 01:55 | Day surgery (SDC) | payer OTHER, BC, SELFPAY ==
[2022-11-04 15:51] VITALS: BMI 25.6
--- NOTE | 2022-11-04 15:55 | PC.NURSE ---
Report to the Outpatient Waiting Room, entrance under the green pavilion located off [facility], at time 6:00 on date 11/13/22. Planned Procedure Time: 7:30. Time changes happen often and if your time is changed the preop area will call you the afternoon before. - You and your visitor will be asked to self-screen and do not enter if you have any COVID symptoms. - Only one visitor is requested with a max of two and NO children visitors are allowed at this time. - The patient visitor may be requested to leave or wait in car when not with patient due to distancing restrictions. - A mask is optional within the hospital at this time. Patients may have clear liquids (water, carbonated beverages, clear teas, apple juice) until 3 hours prior to surgery with a maximum of 20 ounces. - No food from midnight until time of surgery Take the following medications with a SIP of water the morning of surgery: PAROXETINE, THYROID DO NOT STOP ANY OF YOUR OTHER PRESCRIPTION MEDICATIONS PRIOR TO SURGERY?EXCEPT THE FOLLOWING Medications to discontinue per physician: VITAMINS/SUPPLEMENTS Date to take last dose: 11/09/22 (OR PER DR. RINCON) Please no make-up, nail mont[place], hairspray, perfume, deodorant, or body powder the day of surgery. No jewelry (including any body piercings) or valuables the day of surgery, leave them at home. Please take a shower or bath the night before, or the morning of, surgery with an antibacterial soap. Wear comfortable, loose fitting clothing. - Jewelry must be removed prior to entering the operating room. Rings and piercings that are not removed may be cut off. - The hospital will not accept responsibility for valuables. - Please leave all valuables, including medications, at home the day of surgery. If you are going home after surgery, a licensed intermodal owner operator truck driver must drive you home. - NO public transportation without another adult if you receive anesthesia. - We recommend that an adult stay with you for 24 hours following discharge. - We also recommend that you do not drive, make important decision, drink alcoholic beverages, or take any drugs that were not prescribed by your health care provider for at least 24 hours after your discharge time. Follow any additional instructions given to you from your surgeon. If you or anyone in your household have experienced Covid symptoms in the past week, please notify your surgeon or the nurse liaison at the phone number below for possible testing. Telephone instructions given to PT - ANGELIA BECERRA and asked if any additional questions and then verbalized understanding. Patient advised to call surgeon office or pre surgery nurse liaison [phone] if any additional questions.
[2022-11-13] VITALS (8 sets, daily range): BP systolic 101–124; BP diastolic 52–66; PULSE 60–79; RESP 10–16; TEMP 36.1–36.4; O2SAT 98–100
--- NOTE | 2022-11-13 07:13 | WPDANESEPPF ---
Anes - Initial Pre Proc Eval Procedure: Operation Date: 11/13/22 07:30 Proposed Procedures p Excision of Ganglion Cyst Left Foot - Luis Guido JR, MD Date/Time: 11/13/22 07:13 Surgeon: Luis Guido JR, MD Pre Op Diagnosis: ganglion cyst left foot Patient Data Age: 62 Gender: F Height: 1.57 m Weight: 68.5 kg Last Vital Signs Temp 36.1 C L 11/13/22 06:25 Pulse 64 11/13/22 06:25 Resp 16 11/13/22 06:25 BP 116/52 L 11/13/22 06:25 Pulse Ox 100 11/13/22 06:25 O2 Del Method Room Air 11/13/22 06:25 Allergies Allergy/AdvReac Type Severity Reaction Status Date / Time No Known Allergies Allergy Verified 11/13/22 06:20 Home Medications Medication Instructions Recorded Confirmed Type esterified 1 tablet PO [id number] 02/13/20 11/04/22 History estrogens-methyltestosterone 0.625 mg-1.25 mg tablet testosterone 75 mg implant pellet 150 mg subcut [id number] 02/13/20 11/04/22 History B Complex-Vitamin B12 1 tablet PO DAILY 10/09/20 11/04/22 History calcium carbonate 600 mg-vitamin 1 cap PO BID 04/01/21 11/04/22 History D3 12.5 mcg (500 unit) capsule (Calcium 600 with Vitamin D3) spironolactone 100 mg tablet 100 mg PO BID 04/01/21 11/04/22 History thyroid (pork) 90 mg tablet 90 mg PO DAILY 04/01/21 11/04/22 History ([place] Thyroid) pantoprazole 40 mg tablet,delayed 40 mg PO QAM #30 tabs 09/29/21 11/04/22 Rx release polyethylene glycol 3350 17 17 g PO DAILY 04/02/22 11/04/22 History gram/dose oral powder (Miralax) paroxetine HCl 12.5 mg See Rx Instructions .Route 05/21/22 11/04/22 Rx tablet,extended release 24 hr .COMPLEX #90 tabs rosuvastatin 5 mg tablet 5 mg PO DAILY #90 tabs 05/21/22 11/04/22 Rx estradiol 10 mcg vaginal tablet 10 mcg vaginal 2XW #24 tabs 06/04/22 11/04/22 Rx (Yuvafem) Patient hx anesthesia problems: none Family hx anesthesia problems: none Results Review: All pre-operative results and documents have been reviewed as part of the pre-operative evaluation. [facility] Past Medical History Medical History Chronic depression Diverticulosis of colon (without mention of hemorrhage) Endometriosis, site unspecified Ganglion, left hand History of vaginal delivery x 2 Impingement syndrome of right shoulder Surgical History Surgical History History of arthroscopy of right shoulder (~10/2020) History of breast augmentation (~2011) History of cholecystectomy History of hip replacement (~2007) Left History of left salpingo-oophorectomy History of total hysterectomy Hx of abdominoplasty (~2017) Status post arthroscopy of right shoulder Family History Family History Father Family history of hypercholesterolemia Hypertension Family history of alcoholism Grandparent Hypertension Family history of alcoholism Cerebrovascular accident Family history of malignant neoplasm of breast Social History Social History Smoking status: Never smoker Second hand tobacco smoke exposure: No Alcohol intake: never Substance use: never Substance use type: does not use Living arrangements: with family Spiritual care concerns: No Anes - Eval Final PreProcedure Day of Procedure 11/13/22 07:13 Patient weight: overweight Heart: regular rate and rhythm Lungs: clear to auscultation Airway: Mallampati scale class II Neurological: alert and oriented Last oral intake: >/= 8 hours ASA classification: II Emergent: no Anesthetic plan: proceed Anesthesia type and monitoring: general LMA and standard monitoring Results Review: All pre-operative results and documents have been reviewed as part of the pre-operative evaluation. Informed Consent: The patient's anesthetic plan and its attendant risks and benefits w
[2022-11-13] MEDS: LACTATED RINGERS 1,000 ML 30 ML IV CONT (07:20)
--- NOTE | 2022-11-13 07:23 | WPDHPUPDATE1 ---
History and Physical Update Update Date/Time: 11/13/22 07:23 History and Physical has been reviewed, including an updated exam of the patient. There are NO changes in the patient's condition. Risks, benefits, and alternatives have been discussed and questions answered. Patient agrees to proceed with procedure.
[2022-11-13] MEDS: ceFAZolin 2 GM/D5W 50 ML 2 GM/50 ML BAG IVPB (07:29)
[2022-11-13] MEDS: BUPivacaine HCL 0.5% 10 ML AMP 5 ML INFILTRATE (07:50)
[2022-11-13] MEDS: LIDOCAINE HCL 2% LOCAL INJ 20 ML VIAL 5 ML INFILTRATE (07:51)
--- NOTE | 2022-11-13 08:29 | P.OP_ITS ---
Procedure Note - Detailed Date of Procedure 11/13/22 Pre-op Diagnosis ganglion cyst left foot Post-op Diagnosis Same Procedure Performed Excision of ganglion cyst left foot Surgeon Luis Guido JR, DPM Anesthesia General and Local Indications Painful ganglion cyst left foot Findings Ganglion cyst with yellow straw color fluid Description of Procedure PROCEDURE IN DETAIL: Under mild sedation, the patient was brought into the operating room, placed on the operating table in the supine position. A pneumatic ankle tourniquet was placed about the patient's ankle. Following general LMA, a local anesthetic block was obtained about the foot and ankle utilizing 20 cc of a 1:1 of 2% Lidocaine plain and 0.5% Marcaine plain. The foot was then scrubbed, prepped, and draped in the usual aseptic manner. An Esmarch bandage was then used to exsanguinate the patient's foot and the pneumatic ankle tourniquet was then inflated. Surgery began in the following manner: Attention was directed to the dorsal aspect of the midfoot overlying the extensor tendon. The incision was made starting along the medial navicular cuneiform region to the shaft of the first metatarsal. The incision was continued deep down through the subcutaneous tissues using sharp and blunt dissection. All bleeders were cauterized as necessary. At this point, the dissection was continued down to the superficial fascial layer where the large cystic mass was noted surrounding the extensor hallucis longus tendon. An accessory extensor capsularis was noted and excised. The entire mass was excised and sent for gross and histopathology.I used electrocautery to cauterize the proximal and distal extension of the cyst. I did protect the neurovascular structures. The operative site was flushed with copious amount of sterile salin e. Finally, the subcutaneous structures were reapproximated with 4-0 Vicryl. Next, the skin was reapproximated and coapted utilizing 4-0 Monocryl in running subcuticular suture fashion technique. Upon completion of the procedure, the incision was dressed with Steri-Strips, Adaptic, 4x4s, Kerlix, and Coban. The pneumatic ankle tourniquet was then deflated and a prompt hyperemic response was noted to all digits of the foot. A surgical shoe was then applied to the affected lower extremity. It is important to note that Dr. Guido was present throughout the procedure. The patient did very well with the procedure and the anesthesia. The patient was transferred to the recovery room with vital signs stable and vascular status intact to all toes of the foot. Following a period of postoperative monitoring, the patient will be discharged home on the following written and oral postoperative instructions: 1. Keep the dressing clean, dry, and intact. 2. The patient to be protected weight bearing with a surgical shoe. 3. The patient should ice and elevate the affected foot when at rest. 4. The patient should contact Dr. Guido for all postop care and if any problems should arise. The patient will follow up in one week for the post op visit. 5. Prescriptions were written for Percocet 5/325, dispensed 40 to be taken 1 p.o. q.4-6 hours as needed for severe pain. Furthermore, the patient should take Aspirin 325 once daily for two weeks to prevent DVT. Estimated Blood Loss 1 Packing No Pathology None sent Complications No immediate complications Condition Stable Disposition Same day
== END 2022-11-13 10:05 | disposition home or self-care (01) ==
PROVIDERS: PCP Family Medicine; Visit Provider Podiatrist Foot & Ankle Surgery
PROC: (CPT 28090; principal; 2022-11-13 07:30)
DX: M67.472 Ganglion, left ankle and foot (principal); F32.A Depression, unspecified
CPT/HCPCS: 28090; 88305; 93005; J0690; J1100; J2250; J2405; J2704; J7120

== ENCOUNTER 2023-08-10 15:39 | Outpatient (CLI) | payer OTHER, BC, SELFPAY ==
--- NOTE | ~2023-08-10 | MM_ITS ---
EXAMINATION: MM scrn merritt implant BI w snow HISTORY: Screening mammogram TECHNIQUE: Craniocaudal and mediolateral oblique 3-D tomosynthesis images with implant displacement a nd synthetic 2-D images were generated. Craniocaudal and mediolateral oblique views of the breasts wi thout implant displacement were obtained using full field digital mammography. CAD analysis was submi tted and interpreted. COMPARISON: 04/01/2022, 02/27/2021, 02/2020 bilateral implant screening mammogram examinations BREAST PARENCHYMAL COMPOSITION: The breasts are almost entirely fatty. FINDINGS: Status post bilateral augmentation mammoplasty. There is no evidence of suspicious mass, ca lcification, or architectural distortion to suggest malignancy in either breast. There has been no morejon spicious interval change. IMPRESSION: 1. No mammographic evidence of malignancy. 2. Recommend routine screening mammography in one year. BI-RADS Category 1: Negative Reviewed, dictated and finalized at location A. ARCH RN SPEC
== END 2023-08-10 15:40 | disposition home or self-care (01) ==
PROVIDERS: PCP Family Medicine; Visit Provider Registered Nurse
DX: Z12.31 Encounter for screening mammogram for malignant neoplasm of breast (principal)
CPT/HCPCS: 77063; 77067

== ENCOUNTER 2024-07-12 12:45 | Outpatient (CLI) | payer OTHER, BC, SELFPAY ==
--- NOTE | 2024-07-12 13:25 | NEURO_ITS ---
Impression: # Complains of numbness of hands. Non-diabetic. # Mild Carpal Tunnel Syndrome. # No ulnar neuropathy. # Normal needle/EMG exam. Nerve Conduction Studies Anti Sensory Summary Table Stim Site NR Peak (ms) P-T Amp (?V) Site1 Site2 Delta-P (ms) Dist (cm) Holger (m/s) Left Median Anti Sensory (2-3nd Digit) Wrist 3.8 20.5 Wrist 2-3nd Digit 3.8 14.0 37 Wrist 4.2 14.8 Wrist 2-3nd Digit 3.8 14.0 37 Right Median Anti Sensory (2-3nd Digit) Wrist 3.5 37.4 Wrist 2-3nd Digit 3.5 14.0 40 Wrist 3.3 39.5 Wrist 2-3nd Digit 3.5 14.0 40 Left Radial Anti Sensory (Base 1st Digit) Wrist 1.7 53.7 Wrist Base 1st Digit 1.7 0.0 Right Radial Anti Sensory (Base 1st Digit) Wrist 2.1 29.5 Wrist Base 1st Digit 2.1 0.0 Left Ulnar Anti Sensory (5th Digit) Wrist 2.2 48.7 Wrist 5th Digit 2.2 14.0 64 Right Ulnar Anti Sensory (5th Digit) Wrist 2.2 59.7 Wrist 5th Digit 2.2 14.0 64 Motor Summary Table Stim Site NR Onset (ms) O-P Amp (mV) Site1 Site2 Delta-0 (ms) Dist (cm) Holger (m/s) Left Median Motor (Abd Poll Brev) Wrist 3.5 5.9 Elbow Wrist 4.5 27.0 60 Elbow 8.0 5.9 Right Median Motor (Abd Poll Brev) Wrist 3.4 7.5 Elbow Wrist 4.6 27.0 59 Elbow 8.0 4.3 Left Ulnar Motor (Abd Dig Minimi) Wrist 2.0 7.9 A Elbow Wrist 4.7 28.0 60 A Elbow 6.7 6.0 Right Ulnar Motor (Abd Dig Minimi) Wrist 2.2 5.4 A Elbow Wrist 4.6 28.0 61 A Elbow 6.8 4.7 B Elbow Wrist 3.1 19.0 61 B Elbow 5.3 5.3 F Wave Studies NR F-Lat (ms) L-R F-Lat (ms) Left Median (Mrkrs) (Abd Poll Brev) 27.02 0.23 Right Median (Mrkrs) (Abd Poll Brev) 27.25 0.23 Left Ulnar (Mrkrs) (Abd Dig Min) 26.98 0.27 Right Ulnar (Mrkrs) (Abd Dig Min) 26.72 0.27 EMG Side Muscle Nerve Root Ins Act Fibs Amp Dur Recrt Comment Right 1stDorInt Ulnar C8-T1 Nml Nml Nml Nml Nml Right Ext Indicis Radial (Post Int) C7-8 Nml Nml Nml Nml Nml Right Ext Digitorum Radial (Post Int) C7-8 Nml Nml Nml Nml Nml Right BrachioRad Radial C5-6 Nml Nml Nml Nml Nml Right PronatorTeres Median C6-7 Nml Nml Nml Nml Nml Right Abd Poll Brev Median C8-T1 Nml Nml Nml Nml Nml Right ABD Dig Min Ulnar C8-T1 Nml Nml Nml Nml Nml Left 1stDorInt Ulnar C8-T1 Nml Nml Nml Nml Nml Left Ext Indicis Radial (Post Int) C7-8 Nml Nml Nml Nml Nml Left Ext Digitorum Radial (Post Int) C7-8 Nml Nml Nml Nml Nml Left BrachioRad Radial C5-6 Nml Nml Nml Nml Nml Left PronatorTeres Median C6-7 Nml Nml Nml Nml Nml Left Abd Poll Brev Median C8-T1 Nml Nml Nml Nml Nml Left ABD Dig Min Ulnar C8-T1 Nml Nml Nml Nml Nml MTDD
== END 2024-07-12 12:46 | disposition home or self-care (01) ==
LOC: ANHNEURO 12:45
PROVIDERS: PCP Family Medicine; Visit Provider Plastic Surgery
DX: G56.03 Carpal tunnel syndrome, bilateral upper limbs (principal)
CPT/HCPCS: 95886; 95911

== ENCOUNTER 2024-11-22 00:37 | Day surgery (SDC) | payer OTHER, BC, SELFPAY ==
[2024-11-10 13:36] VITALS: BMI 25.0
--- NOTE | 2024-11-10 13:40 | PC.NURSE ---
Report to the Outpatient Waiting Room, entrance under the green pavilion located off [facility], at time _0915_ on date _[id number]_. Planned Procedure Time: _1115_.? Time changes happen often and if your time is changed the preop area will call you the afternoon before. - You and your visitor will be asked to self-screen and do not enter if you have any COVID symptoms. Please call surgeon if you need to reschedule. - A mask is optional within the hospital at this time. Patients may have clear liquids (water, carbonated beverages, clear teas, apple juice) until 3 hours prior to surgery with a maximum of 20 ounces. - No food from midnight until time of surgery and no smoking, or chewing tobacco (or any form of nicotine). No chewing gum, candy or mints. Take only the following medications with a SIP of water on the morning of surgery: ___Thyroid DO NOT STOP ANY OF YOUR OTHER PRESCRIPTION MEDICATIONS PRIOR TO SURGERY EXCEPT THE FOLLOWING Hold all vitamins and supplements for 3 days per anesthesiologist. Medications to discontinue per physician Date to take last dose Please no make-up, nail macedonian, hairspray, perfume, deodorant, or body powder the day of surgery.? No jewelry (including any body piercings) or valuables the day of surgery, leave them at home.? Please take a shower or bath the night before, or the morning of, surgery with an antibacterial soap.? Wear comfortable, loose fitting clothing.? - Jewelry must be removed prior to entering the operating room.? Rings and piercings that are not removed may be cut off. - The hospital will not accept responsibility for valuables.? - Please leave all valuables, including medications, at home the day of surgery. If you are going home after surgery, a licensed coach driver must drive you home.? - NO public transportation without another adult if you receive anesthesia. - We recommend that an adult stay with you for 24 hours following discharge. - We also recommend that you do not drive, make important decision, drink alcoholic beverages, or take any drugs that were not prescribed by your health care provider for at least 24 hours after your discharge time. Follow any additional instructions given to you from your surgeon. Telephone instructions given to __Shannon___and asked if any additional questions and then verbalized understanding. Patient advised to call surgeon office or pre surgery nurse liaison [phone] if any additional questions.
--- NOTE | 2024-11-10 13:49 | PC.NURSE ---
Report to the Outpatient Waiting Room, entrance under the green pavilion located off [facility], at time _0915_ on date _[id number]_. Planned Procedure Time: _1115_.? Time changes happen often and if your time is changed the preop area will call you the afternoon before. - You and your visitor will be asked to self-screen and do not enter if you have any COVID symptoms. Please call surgeon if you need to reschedule. - A mask is optional within the hospital at this time. May have clear liquids (water, carbonated beverages, clear teas, apple juice) until 315am with a maximum of 20 ounces. Nothing to drink after 315am. - No food from midnight until time of surgery and no smoking, or chewing tobacco (or any form of nicotine). No chewing gum, candy or mints. Take only the following medications with a SIP of water on the morning of surgery: ___Thyroid DO NOT STOP ANY OF YOUR OTHER PRESCRIPTION MEDICATIONS PRIOR TO SURGERY EXCEPT THE FOLLOWING Hold all vitamins and supplements for 3 days per anesthesiologist. Medications to discontinue per physician Date to take last dose Please no make-up, nail finnish, hairspray, perfume, deodorant, or body powder the day of surgery.? No jewelry (including any body piercings) or valuables the day of surgery, leave them at home.? Please take a shower or bath the night before, or the morning of, surgery with an antibacterial soap.? Wear comfortable, loose fitting clothing.? - Jewelry must be removed prior to entering the operating room.? Rings and piercings that are not removed may be cut off. - The hospital will not accept responsibility for valuables.? - Please leave all valuables, including medications, at home the day of surgery. If you are going home after surgery, a licensed sales driver must drive you home.? - NO public transportation without another adult if you receive anesthesia. - We recommend that an adult stay with you for 24 hours following discharge. - We also recommend that you do not drive, make important decision, drink alcoholic beverages, or take any drugs that were not prescribed by your health care provider for at least 24 hours after your discharge time. Follow any additional instructions given to you from your surgeon. Telephone instructions given to ___Joann__and asked if any additional questions and then verbalized understanding. Patient advised to call surgeon office or pre surgery nurse liaison [phone] if any additional questions.
--- OUTSIDE RECORDS SUMMARY | 2024-11-22 00:40 | XMS_ITS | Clinical Summary ---
Author Organization [facility] [address] Address [address] [place] [address] Care Team Providers Care Gluing Crew Leader Name Role Phone Aylin Bryant MD Primary Care Provider + Allergies No known active allergies Medications spironolactone (ALDACTONE) 100 mg tablet Take 1 tablet (100 mg total) by mouth 2 (two) times a day Active PARoxetine CR (PAXIL-CR) 12.5 mg 24 hr tablet Take 1 tablet (12.5 mg total) by mouth every morning Active rosuvastatin (CRESTOR) 5 mg tablet 04/28/2023 Active testosterone, bulk, powder 0 04/19/2023 Active [place] Thyroid 90 mg tablet 04/08/2023 Active Active Problems Problem Noted Date Diagnosed Date Palpitations 04/15/2017 Precordial pain 04/15/2017 Immunizations Immunization Administration Dates Next Due ZOSTER Recombinant 04/04/2022 Surgical History Surgery Date Site/Laterality Comments SHOULDER ARTHROSCOPY ROTATOR CUFF REPAIR BREAST SURGERY 2012 implants COSMETIC SURGERY 2018 adominoplasty CHOLECYSTECTOMY 1992 HYSTERECTOMY 2006 JOINT REPLACEMENT 2008 LASIK 2019 Medical History Medical History Date Comments GERD (gastroesophageal reflux disease) 2019 Depression 1992 Migraines 1974 Thyroid disease 2011 Family History Medical History Relation Name Comments Drug abuse Brother Boogie Warren Alcohol abuse Father Monico Friesviridiana Hypertension Father Monico Fricaitlinner Miscarriages / Stillbirths Mother Iris Friesner Relation Name Status Comments Brother Boogie Warren Alive Father Monico Warren Alive Mother Iris Friesner Alive Social History Tobacco Use Types Packs/Day Years Used Date Smoking Tobacco: Never Smokeless Tobacco: Never Tobacco Cessation:Counseling Given: Not Answered Alcohol Use Standard Drinks/Week Comments No 0 (1 standard drink = 0.6 oz pur e alcohol) Personal Safety Answer Date Recorded Getting School Help Needed Not on file 11/26 Comments Unknown Sex and Gender Information Value Date Recorded Sex Assigned at Not on file 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 Gender Identity Female 06/25/2023 1:48 PM CDT Sexual Orientation Straight 06/25/2023 1: 48 PM CDT Obstetrics History Last Filed Vital Signs Vital Sign Reading Time Taken Comments Blood Pressure 100/58 04/15/2017 2:12 PM CDT Pulse 80 04/15/2017 2:12 PM CDT Temperature - - Respiratory Rate 12 04/15/2017 2:12 PM CDT Oxygen Saturation - - Inhaled Oxygen Concentration - - Weight 67.7 kg (149 lb 3.2 oz) 07/05/2023 9:03 A M CDT Height 159.4 cm (5' 2.76 ) 07/05/2023 9:03 AM CD T Body Mass Index 26.64 07/05/2023 9:03 AM CDT Plan of Treatment Health Maintenance Due Date Last Done Comments Breast Cancer Screening-Mammogram 1962 Colon Cancer Screening-Colonoscopy 1962 Depression Screening 1962 Hepatitis C Screening 1962 DTaP/Tdap/Td Vaccine (1 - Tdap) 1973 Hepatitis B Screening 01/09/1980 Regular Well Visit/Exam 18-64 01/09/1980 Zoster Vaccine (2 of 2) 05/30/2022 04/04/2022 Covid-19 Vaccine (4 - 2023-2 5 season) 2024 06/20/2021, 09/20/2020, 08/30/2020 Influenza Vaccine (#1) 2024 Pneumococcal vaccine <65 Aged Out No longer eligible based on patient's age to complete this topic Insurance [employer] [place] [employer] [facility] CHOICE PLUS BLUE ACCESS OOS [facility] CHOICE PLUS Care Teams Gluing Crew Leader Relationship Specialty Start Date End Date Aylin Bryant MD PCP - General Family Medicine 04/15/17
--- OUTSIDE RECORDS SUMMARY | 2024-11-22 00:40 | XMS_ITS | Encounter Summary ---
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
--- OUTSIDE RECORDS SUMMARY | 2024-11-22 00:40 | XMS_ITS | Referral Summary ---
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 [place] [employer] OOS Member Subscriber Plan / Payer (Ef fective 2018-Present) Name:Shannon Becerra Relation to Subscriber:Spouse Name:STEVEN BECERRA Date of :1989 (Home) Address: [address] [place] [address] Payer ID:[id number] (NAIC) Type:[employer] Address: [address] [facility] H[facility]/PPO Address: [address] [address] [place] [address] [employer] OOS Member Subscriber Plan / Payer (Ef fective 2018-Present) Name:Shannon Becerra Relation to Subscriber:Spouse Name:STEVEN BECERRA Date of :1989 (Home) Address: [address] [place] [address] Payer ID:[id number] (NAIC) Type:[employer] Address: [address] [employer] H[facility]/PPO Address: [facility] [address] [phone] Care Teams Director Life Insurance Relationship Specialty Start Date End Date Aylin Bryant MD PCP - General Family Medicine 04/15/17
--- OUTSIDE RECORDS SUMMARY | 2024-11-22 00:40 | XMS_ITS | Clinical Summary ---
Author Organization 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 Gender Identity Not on file Sexual Orientation Not on file Plan of Treatment Health Maintenance Due Date Last Done Comments Cervical Cancer Screening Pa p Smear (Age 30 to 64) Every 3 Years 1962 Colorectal Cancer Screening Colonoscopy (10 Years) 1962 Annual Physical 1965 Hepatitis C 01/09/1980 DTaP, Tdap and Td Vaccines ( 1 - Tdap) 1981 Cervical Cancer Screening Pa p with HPV Testing (Age 30 to 64) Every 5 Years 01/09/1992 Cervical Cancer Screening with HPV 01/09/1992 Mammogram Screening 2002 Zoster Vaccines (1 of 2) 01/09/2012 COVID-19 Vaccine (2023-2 5 season) 2024 Influenza Adult (#1) 2024 RSV Immunization or 60+ Years (1 - 1-dose 75+ series) 2037 Meningococcal B Vaccine Aged Out No l onger eligible based on patient's age to complete this topic Meningococcal Vaccine Aged Out No lenard seamus eligible based on patient's age to complete this topic Pneumococcal Vaccine: Pediat rics (0 to 5 Years) and At-Risk Patients (6 to 64 Years) Aged Out No longer eligible b ased on patient's age to complete this topic RSV Immunizations Under 20 Months Aged Out No longer eligible based on patient's age to complete this topic
--- OUTSIDE RECORDS SUMMARY | 2024-11-22 00:40 | XMS_ITS | Continuity of Care Document ---
Author Organization [facility] Address [address] [facility] [address] [place] [address] Phone Care Team Providers Care Mold Laminator Name Role Phone Larry Ahn MD, FACS Unavailable Unavailab le Advance Directives Directive Yes / No Effective Date File Name No Information Encounters Encounter Description Practice Location Reason(s) For Visit Diagnoses Date Provider Providers Copied on Encounter [facility], [address], [place], [place], [id number], [place] tel:[phone] [facility] No Information 6-[address] Anabelle Juarez. [address] [facility], [address], [place], [place], [id number], [place]. tel:[phone] Family History Family Member Type Diagnosis Age At Onset No Information Payers Payer name Insurance type Covered constitution party ID Authoriza tion(s) No Information Social History [...]
--- NOTE | 2024-11-22 06:51 | P.OP_ITS ---
Procedure Note - Detailed Date of Procedure 11/22/24 Pre-op Diagnosis left carpal tunnel syndrome Post-op Diagnosis Same Procedure Performed left ectr Surgeon Roddy Medel MD Steel Layout Worker aneesh kilpatrick pa-c Anesthesia MAC Description of Procedure INFORMED CONSENT: The patient was seen and examined and marked in the pre-op area.? The patient signed the consent form. PROCEDURE IN DETAIL:The patient taken back to OR on the stretcher in supine position. Time out performed with anesthesia, surgeon and staff agreeing on patient's name site and surgery to be performed SCDs were placed on the lower extremities and inflated. A tourniquet was placed on {left} upper extremity and antibiotics given IV After anesthesia administered sedation I injected {5}cc 1%lido with epi and 0.5% marcaine plain at the operative site The?{left upper extremity}?was prepped and draped in sterile fashion the??{left upper extremity} was? exsanguinated with Esmarch bandage and tourniquet inflated to 250mmHg I made a transverse incision in the {left} volar distal wrist crease through skin and dermis with 15 blade scalpel.? Littler scissors spread down to antebrachial fascia. A small incision was made in antebrachial fascia allowing access to Carpal tunnel. I proceeded with sequential dilation staying in line with the ring finger and hugging the hook of the hamate.? I then used the synovial elevator to free any adhesions from the underside of the transverse carpal ligament. Next I was able to insert the Microaire endoscopic carpal tunnel device with direct visualization of the transverse fibers on the monitor and proceeded with complete segmental retrograde release of the ligament in its entirety.? I irrigated with normal saline and closed with 4-0 monocryl for dermis and subcuticular closure. A dressing of Dermabond, 4x4, beth, and a volar splint was applied for patient safety, security, and comfort and secured with an edda bandage after the tourniquet was let down noting the hand was warm and well perfused. The patient was then awaken from anesthesia and transferred to the recovery room in stable condition.? Complications - none EBL- 0cc Disposition - home in stable conditions aneesh kilpatrick pa-c was essential for positioning, retraction, closure and dressing placement [facility] Billing Surgery - Charge Forward: Surgery Billing ([id number] for aneesh)
--- NOTE | 2024-11-22 06:51 | WPDHPUPDATE1 ---
History and Physical Update Update Date/Time: 11/22/24 06:51 Patient seen and examined in pre-operative holding area. No interval change in medical history or symptoms. Patient recalls previous discussion of benefits and alternatives to procedure. Continues to desire to proceed with left endoscopic possible open carpal tunnel release . Reviewed procedure, post-op expectations and risks including but not limited to bleeding, infection, injury to tendon/nerve/vessel, decreased hand function, stiffness, RSD, no change or worsening of symptoms. I discussed the possible use of assistants and their participation in the case. Patient stated understanding and signed the consent form wishing to proceed.
--- NOTE | 2024-11-22 08:52 | WPDANESEPP ---
Anes - Eval Pre Procedure Procedure: Operation Date: 11/22/24 11:15 Proposed Procedures p Left Endoscopic Carpal Tunnel Release, Possible Open - Roddy Medel MD Date/Time: 11/22/24 08:52 Surgeon: Gianfranco Pre Op Diagnosis: left carpal tunnel syndrome Patient Data Age: 64 Gender: F Height: 1.55 m Weight: 60 kg Allergies Allergy/AdvReac Type Severity Reaction Status Date / Time No Known Allergies Allergy Verified 11/10/24 13:34 Home Medications ?Medication ?Instructions ?Recorded ?Confirmed ?Type esterified 1 tablet PO [id number] 02/13/20 11/10/24 History estrogens-methyltestosterone 0.625 mg-1.25 mg tablet testosterone 75 mg implant pellet 150 mg subcut [id number] 02/13/20 11/10/24 History B Complex-Vitamin B12 1 tablet PO DAILY 10/09/20 11/10/24 History calcium 600 mg (as 1 cap PO BID 04/01/21 11/10/24 History carbonate)-vitamin D3 12.5 mcg (500 unit) capsule (Calcium with Vit D3) spironolactone 100 mg tablet 100 mg PO BID 04/01/21 11/10/24 History thyroid (pork) 90 mg tablet 90 mg PO DAILY 04/01/21 11/10/24 History ([place] Thyroid) pantoprazole 40 mg tablet,delayed 40 mg PO QAM #30 tabs 09/29/21 11/10/24 Rx release polyethylene glycol 3350 17 17 g PO DAILY 04/02/22 11/10/24 History gram/dose oral powder (Miralax) rosuvastatin 5 mg tablet 5 mg PO DAILY #90 tabs 08/22/24 11/10/24 Rx bimatoprost 0.03 % drops with 1 applic topical DAILY #5 mL 10/19/24 11/10/24 Rx applicator, eyelash base (Latisse) paroxetine HCl 12.5 mg See Rx Instructions .Route 11/08/24 11/10/24 Rx tablet,extended release 24 hr .COMPLEX #90 tabs Patient hx anesthesia problems: none Family hx anesthesia problems: none Results Review: All pre-operative results and documents have been reviewed as part of the pre-operative evaluation. [facility] Past Medical History Medical History Transient lingual papillitis Erosive gastritis Impingement syndrome of right shoulder History of vaginal delivery x 2 Chronic depression Diverticulosis of colon (without mention of hemorrhage) Endometriosis, site unspecified Ganglion, left hand Surgical History Surgical History H/O removal of cyst Left foot Status post arthroscopy of right shoulder History of arthroscopy of right shoulder (~10/2020) History of breast augmentation (~2011) History of left salpingo-oophorectomy History of total hysterectomy History of cholecystectomy History of hip replacement (~2007) Left Hx of abdominoplasty (~2017) Family History Family History Father Family history of hypercholesterolemia Hypertension Family history of alcoholism Grandparent Hypertension Family history of alcoholism Cerebrovascular accident Family history of malignant neoplasm of breast Sibling Suicide Substance abuse Social History Social History (Updated 10/19/24 @ 10:57 by Kathi Stanford MA) Smoking status: Never smoker Second hand tobacco smoke exposure: No Alcohol intake: never Substance use: never Substance use type: does not use Do You Feel Safe in your Home?: Yes Lack of Transportation: No Lack of Food: Never True Current Housing: I Have Housing Concerned About Future Housing: No Difficulty Paying Gas/Electric Bills: No Difficulty Paying for Meds: No Currently Unemployed: No Education: Bachelor's Degree Difficulty w/ Childcare or Family Care: No Living arrangements: with family Spiritual care concerns: No Exam Day of Procedure 11/22/24 08:52
[2024-11-22] MEDS: LIDO 1%/EPINEPHRINE 1:100,000 20 ML VIAL 10 ML INFILTRATE (09:12)
[2024-11-22 09:43] VITALS: BP 112/52; PULSE 74; RESP 16; TEMP 36.1; O2SAT 100; BMI 25.4
[2024-11-22] MEDS: LACTATED RINGERS 1,000 ML 30 ML IV CONT (09:48)
--- NOTE | 2024-11-22 09:51 | P.PNAN_ITS ---
Anes - Eval Final PreProcedure Day of Procedure 11/22/24 09:51 Patient weight: normal Heart: regular rate and rhythm Lungs: clear to auscultation Airway: Mallampati scale class II Neurological: alert and oriented Last oral intake: >/= 8 hours ASA classification: II Emergent: no Anesthetic plan: proceed Anesthesia type and monitoring: general GIVS and standard monitoring Results Review: All pre-operative results and documents have been reviewed as part of the pre- operative evaluation. Informed Consent: The patient's anesthetic plan and its attendant risks and benefits were discussed with the patient/family/POA. Questions were solicited and answers provided to the satisfaction of the patient/family/POA.
[2024-11-22] MEDS: ceFAZolin 2 GM/D5W 50 ML 2 GM/50 ML BAG IVPB (10:49)
[2024-11-22 11:13] VITALS: BP 85/47; PULSE 83; RESP 20; O2SAT 99
[2024-11-22 11:30] VITALS: BP 98/54; PULSE 74; O2SAT 97
[2024-11-22 12:00] VITALS: BP 111/56; PULSE 71
[2024-11-22 12:15] VITALS: BP 104/60; PULSE 64
== END 2024-11-22 12:25 | disposition home or self-care (01) ==
PROVIDERS: PCP Family Medicine; Visit Provider Plastic Surgery
PROC: 01N54ZZ Release Median Nerve, Percutaneous Endoscopic Approach (ICD-10-PCS; CPT 29848; principal; 2024-11-22 11:15)
DX: G56.02 Carpal tunnel syndrome, left upper limb (principal); F32.A Depression, unspecified; N80.9 Endometriosis, unspecified; Z98.890 Other specified postprocedural states; Z90.49 Acquired absence of other specified parts of digestive tract; Z87.19 Personal history of other diseases of the digestive system; Z80.3 Family history of malignant neoplasm of breast; Z82.49 Family history of ischemic heart disease and other diseases of the circulatory system
CPT/HCPCS: 29848; J0690; J2003; J2004; J2250; J2405; J2704; J3010; J7120

== ENCOUNTER 2024-11-27 06:25 | Emergency (ER) | payer OTHER, BC, SELFPAY ==
--- NOTE | ~2024-11-27 | CT_ITS ---
Non-contrast Head CT History: Head injury Technique: Axial non-contrast imaging of the brain was performed. Dose reduction technique was used on this scan by utilizing automated exposure control and iterative reconstruction technique. The dose -length product (DLP) was 529.67 mGy-cm. Findings: There is no evidence of intracranial hemorrhage, mass lesion, or acute infarct. Brain par enchyma appears normal. The ventricles and subarachnoid spaces are normal in size. The calvarium ap pears normal. The visualized paranasal sinuses and mastoid air cells are clear. Impression: No significant abnormality seen. Reviewed, dictated and finalized at location . Impression: No significant abnormality seen.
--- OUTSIDE RECORDS SUMMARY | 2024-11-27 06:27 | XMS_ITS | Clinical Summary ---
Author Organization [facility] [address] Address [address] [place] [address] Care Team Providers Care Supervisor Color Paste Mixing Name Role Phone Aylin Bryant MD Primary [...] Active testosterone, bulk, powder 0 04/19/2023 Active [place] Thyroid 90 mg tablet 04/08/2023 Active Active [...] on file Legal Sex Female 8:15 AM DATA MANAGEMENT Gender Identity Female 06/25/2023 1:48 PM CDT [...] patient's age to complete this topic Insurance [place] Exchange [place] Bounce Exchange [facility] CHOICE PLUS BLUE ACCESS OOS [facility] Address: [address] [place] [address] [facility] CHOICE PLUS Care Teams Supervisor Color Paste Mixing Relationship Specialty Start Date End Date Aylin Bryant MD PCP - General Family Medicine 04/15/17
--- OUTSIDE RECORDS SUMMARY | 2024-11-27 06:27 | XMS_ITS | Referral Summary ---
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 Gender Identity Female 06/25/2023 1:48 PM [...] Plan of Treatment Not on file Insurance [employer] [place] [employer] OOS Member Subscriber Plan / Payer (Ef fective 2018-Present) Name:Shannon Becerra Relation to Subscriber:Spouse Name:STEVEN BECERRA Date of :1989 (Home) Address: [address] [place] [address] Payer ID:[id number] (NAIC) Type:[employer] Address: [phone] CHOICE PLUS [employer] OOS Member Subscriber Plan / Payer (Ef fective 2018-Present) Name:Shannon Becerra Relation to Subscriber:Spouse Name:STEVEN BECERRA Date of :1989 (Home) Address: [address] [place] [address] Payer ID:[id number] (NAIC) Type:[employer] Address: [phone] CHOICE PLUS [place] [phone] Care Teams Plant Technician Relationship Specialty Start Date End Date Aylin Bryant MD PCP - General Family Medicine 04/15/17
--- OUTSIDE RECORDS SUMMARY | 2024-11-27 06:27 | XMS_ITS | Continuity of Care Document ---
Author Organization [facility] Address [address] [facility] [address] [facility] [address] [place] [address] Phone Care Team Providers Care Shoe Reconditioner Name Role Phone Larry Ahn MD, FACS Unavailable Unavailab le Advance Directives Directive Yes / No Effective Date File Name No Information Encounters Encounter Description Practice Location Reason(s) For Visit Diagnoses Date Provider Providers Copied on Encounter [facility], [address] [facility], [address], [place], [place], [id number], [place] tel:[phone] [facility] No Information 6-200 0 Anabelle Juarez. [address] [facility], [address], [place], [place], [address], [place]. tel:[phone] Family History Family Member Type Diagnosis Age At Onset No Information Payers Payer name Insurance type Covered republican ID Authoriza tion(s) No Information Social History [...]
--- OUTSIDE RECORDS SUMMARY | 2024-11-27 06:27 | XMS_ITS | Clinical Summary ---
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
--- OUTSIDE RECORDS SUMMARY | 2024-11-27 06:27 | XMS_ITS | Encounter Summary ---
Author Organization [facility] Address [address] [place] [address] Care Team Providers Care Customer Solutions Specialist Name Role Phone Unavailable Primary Care Provider Unavailabl e Encounter Details Date Type Department Care Team (Late st Contact Info) Description 02/18/2019 Abstract SFL CONVERSION [address] [place] [address] , Generic Conversion, Social History Tobacco Use Types Packs/Day Years Used Date Smoking Tobacco: Never Assessed Comments Unknown Sex and Gender Information Value Date Recorded Sex Assigned at Not on file Legal Sex Female 10:46 PM JUDICIAL REPORTER Gender Identity Not on file Sexual Orientation Not on file documented as of this encounter Plan of Treatment Not on file documented as of this encounter Visit Diagnoses Not on filedocumented in this encounter
[2024-11-27 07:24] VITALS: BP 110/56; BP 114/59; PULSE 82
[2024-11-27 07:25] VITALS: BP 101/78; PULSE 90
[2024-11-27 07:38] LABS: Basophils Percent Auto 0.5 % (0.2-1.2); Eosinophils Absolute Auto 1.2 K/mm3 (0-0.3); Eosinophils Percent Auto 14.4 % (0-4.4); Hematocrit 39.8 % (37.0-47.0); Hemoglobin 13.6 g/dL (12.0-15.0); Immature Granulocyte Absolute 0.02 K/mm3 (0.00-0.031); Immature Granulocyte Percent A 0.3 % (0-0.5); Lymphocytes Absolute Auto 1.15 K/mm3 (0.9-3.2); Lymphocytes Percent Auto 14.4 % (18.3-44.2); Mean Corpuscular HGB Conc 34.2 g/dl (32-36); Mean Corpuscular Hemoglobin 31.3 pg (26-34); Mean Corpuscular Volume 91.7 fl (80-100); Mean Platelet Volume 9.4 fl (7.4-10.4); Monocytes Absolute Auto 0.5 K/mm3 (0.1-0.6); Monocytes Percent Auto 6.8 % (2.6-8.5); Neutrophils Absolute Auto 5.1 K/mm3 (1.3-6.7); Neutrophils Percent Auto 63.6 % (45.5-73.1); Platelet Count Result 188 k/mm3 (150-375); Red Blood Count 4.34 M/mm3 (4.2-5.4); Red Cell Distribution Width 12.1 % (11.5-14.5)
[2024-11-27 07:41] LABS: Add Urine Microscopic? NO; Appearance Urine Clear (Clear); Bilirubin Urine Negative (Negative); Blood Urine Negative (Negative); Color Urine Yellow (Yellow); Glucose Urine UA Negative (Negative); Ketones Urine Negative (Negative); Leukocyte Esterase Ur Negative LEU/UL (Negative); Nitrate Urine Negative (Negative); Protein Urine Negative (Negative); Specific Grav Ur 1.017 (1.001-1.035); Urobilinogen Urine 0.2 mg/dL (<2.0)
[2024-11-27] MEDS: SODIUM CHLORIDE 0.9% IV 1,000 ML 999 ML IV CONT (07:46)
[2024-11-27] MEDS: MECLIZINE HCL 25 MG TABLET PO (07:46)
--- OUTSIDE RECORDS SUMMARY | 2024-11-27 07:46 | XMS_ITS | Referral Summary ---
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 Gender Identity Female 06/25/2023 1:48 PM CDT [...] Plan of Treatment Not on file Insurance [employer] [place] [employer] OOS Member Subscriber Plan / Payer (Ef fective 2018-Present) Name:Shannon Becerra Relation to Subscriber:Spouse Name:STEVEN BECRERA Date of :1989 (Home) Address: [address] [place] [address] Payer ID:[id number] (NAIC) Type:[employer] Address: [phone] [facility]ICE [facility] HMO/PPO Address: [address] [address] [place] [address] [employer] OOS Member Subscriber Plan / Payer (Ef fective 2018-Present) Name:Shannon Becerra Relation to Subscriber:Spouse Name:STEVEN BECERRA Date of :1989 (Home) Address: [address] [place] [address] Payer ID:[id number] (NAIC) Type:[employer] Address: [phone] CHOICE [facility] HMO/PPO Address: [facility] [address] [place] [phone] Care Teams Field Service Engineer Relationship Specialty Start Date End Date Aylin Bryant MD PCP - General Family Medicine 04/15/17
--- OUTSIDE RECORDS SUMMARY | 2024-11-27 07:46 | XMS_ITS | Encounter Summary ---
Author Organization [facility] Address [address] [place] [address] Care Team Providers Care Bank Vault Clerk Name Role Phone Unavailable Primary Care Provider Unavailabl e Encounter Details Date Type Department Care Team (Late st Contact Info) Description 02/18/2019 Abstract SFL CONVERSION [address] [place] [address] , Generic Conversion, Social History Tobacco Use Types Packs/Day Years Used Date Smoking Tobacco: Never Assessed Comments Unknown Sex and Gender Information Value Date Recorded Sex Assigned at Not on file Legal Sex Female 10:46 PM COORDINATOR OF REHABILITATION SERVICES Gender Identity Not on file Sexual Orientation Not on file documented as of this encounter Plan of Treatment Not on file documented as of this encounter Visit Diagnoses Not on filedocumented in this encounter
--- OUTSIDE RECORDS SUMMARY | 2024-11-27 07:46 | XMS_ITS | Clinical Summary ---
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
--- OUTSIDE RECORDS SUMMARY | 2024-11-27 07:46 | XMS_ITS | Clinical Summary ---
Author Organization [facility] Address [address] [place] [address] Care Team Providers Care Classified Advertising Clerk Name Role Phone Unavailable Primary Care Provider Unavailabl e Social History Tobacco Use Types Packs/Day Years Used Date Smoking Tobacco: Never Assessed Comments Unknown Sex and Gender Information Value Date Recorded Sex Assigned at Not on file Legal Sex Female 10:46 PM [employer] Gender Identity Not on file Sexual Orientation [...]
--- OUTSIDE RECORDS SUMMARY | 2024-11-27 07:46 | XMS_ITS | Continuity of Care Document ---
Author Organization [facility] Address [address] [facility] [address] [facility] [address] [place] [address] Phone Care Team Providers Care Firewall Engineer Name Role Phone Larry Ahn MD, FACS Unavailable Unavailab le Advance Directives Directive Yes / No Effective Date File Name No Information Encounters Encounter Description Practice Location Reason(s) For Visit Diagnoses Date Provider Providers Copied on Encounter [facility], [address] [facility] [address], [place], [place], [id number], [place] tel:[phone] [facility] No Information 6-200 0 Anabelle Juarez. [address] [facility], [address], [place], [place], [address], [place]. tel:[phone] Family History Family Member Type Diagnosis Age At Onset No Information Payers Payer name Insurance type Covered democrat ID Authoriza tion(s) No Information Social History [...]
[2024-11-27 07:55] LABS: Alanine Aminotransferase 34 U/L (6-35); Alkaline Phosphatase 67 U/L (38-126); Anion Gap 7 mmol/L (4-12); Aspartate Amino Transferase 34 U/L (14-36); Bilirubin,Total 0.4 mg/dL (0.2-1.3); Blood Urea Nitrogen 15 mg/dL (7-17); Calcium 9.4 mg/dL (8.4-10.2); Carbon Dioxide 29 mmol/L (22-30); Chloride 100 mmol/L (98-107); Estimated CRCL calculation 44 ml/min; Estimated Glomerular Filt Rate 56; Glucose 121 mg/dL (65-110); Sodium 136 mmol/L (137-145)
--- NOTE | 2024-11-27 07:58 | ED_ITS ---
HPI - General Adult General Chief complaint: Head Injury Stated complaint: i think i have a concussion Time Seen by Provider: 11/27/24 07:04 History of Present Illness HPI narrative: Patient is a 64-year-old female who presents the ER with dizziness. Patient was getting ready for the day and messing with her left wrist splint when she felt like she is going to lose consciousness. She remembers striking the ground with her buttock and her head so she thinks any loss of consciousness that may have occurred was exceptionally brief. This occurred 2 days ago and she had persistent dizziness through the day. Dizziness improved yesterday but then last night it came back. It is worse when she is turning her head. She did not feel spinning dizziness. She had taken tramadol when she had the severe episode. She is currently postop from a wrist surgery. No chest pain or shortness of breath. No extremity weakness or numbness. Normal coordination. Related Data Home Medications ?Medication ?Instructions ?Recorded ?Confirmed ?Last Taken ?Type esterified 1 tablet PO [id number] 02/13/20 11/10/24 06/10/21 History estrogens-methyltestosterone 0.625 mg-1.25 mg tablet testosterone 75 mg implant pellet 150 mg subcut [id number] 02/13/20 11/10/24 06/10/21 History B Complex-Vitamin B12 1 tablet PO DAILY 10/09/20 11/22/24 11/18/24 History calcium 600 mg (as 1 cap PO BID 04/01/21 11/22/24 11/18/24 History carbonate)-vitamin D3 12.5 mcg (500 unit) capsule (Calcium with Vit D3) spironolactone 100 mg tablet 100 mg PO BID 04/01/21 11/22/24 11/21/24 History thyroid (pork) 90 mg tablet 90 mg PO DAILY 04/01/21 11/22/24 11/22/24 History ([place] Thyroid) polyethylene glycol 3350 17 17 g PO DAILY 04/02/22 11/22/24 11/21/24 History gram/dose oral powder (Miralax) Allergies Allergy/AdvReac Type Severity Reaction Status Date / Time No Known Allergies Allergy Verified 11/27/24 06:26 Review of Systems 2 Review of Systems: All systems reviewed & are unremarkable except as noted in HPI and below Constitutional: Constitutional: Reports no additional constitutional complaints ENT: Reports dizziness, Denies nasal congestion and Denies sore throat Cardiovascular: Cardiovascular: Reports no additional cardiovascular complaints Respiratory: Respiratory: Reports no additional respiratory complaints Neurologic: Reports system reviewed and no additional complaints, except as documented PMFSH Past Medical History Medical History Transient lingual papillitis Erosive gastritis Impingement syndrome of right shoulder History of vaginal delivery x 2 Chronic depression Diverticulosis of colon (without mention of hemorrhage) Endometriosis, site unspecified Ganglion, left hand Surgical History Surgical History H/O removal of cyst Left foot Status post arthroscopy of right shoulder History of arthroscopy of right shoulder (~10/2020) History of breast augmentation (~2011) History of left salpingo-oophorectomy History of total hysterectomy History of cholecystectomy History of hip replacement (~2007) Left Hx of abdominoplasty (~2017) Family History Family History Father Family history of hypercholesterolemia Hypertension Family history of alcoholism Grandparent Hypertension Family history of alcoholism Cerebrovascular accident Family history of malignant neoplasm of breast Sibling Suicide Substance abuse Social History Social History (Updated 10/19/24 @ 10:57 by Kathi Stanford MA) Smoking status: Never smoker Second hand tobacco smoke exposure: No Alcohol intake: never Substance use: never Substance use type: does not use Do You Feel Safe in your Home?: Yes Lack of Transportation: No Lack of Food: Never True Current Housing: I Have Housing Concerned About Future Housing: No Difficulty Paying Gas/Electric Bills: No Difficulty Paying for Meds: No Currently Unemployed: No Education: Bachelor's Degree Difficulty w/ Childcare or Family Care: No Living arrangements: with family Spiritual care concerns: No Exam 2 Narrative: GENERAL: Well-appearing, well-nourished, and in no acute distress. HEAD: Normocephalic, atraumatic. EYES: PERRL and EOMI. Mild left gaze nystagmus. ENT: Mucous membranes moist. TMs normal bilaterally and ear canals free of cerumen. CHEST: Clear to auscultation. No respiratory distress. HEART: Regular rate and rhythm. Normal peripheral pulses. EXTREMITIES: Normal range of motion. No edema. SKIN: Warm, dry, no rash. NEURO: No facial droop. Normal [id number] testing and maiwyv-lk-uagi testing. Clear speech without dysarthria or expressive aphasia. Alert and oriented x3. PSYCH: Normal mood and affect. Course Course Emergency Course: Orthostatics reviewed. Received 1 L IV fluid and oral meclizine. Dizziness abated in able to ambulate without issue. Discussed labs which are unremarkable. CT without acute issue. Appropriate for discharge home. Normal EKG. Vital Signs Vital signs: Vital Signs Pulse Rate 82 11/27/24 07:24 Blood Pressure 114/59 L 11/27/24 07:24 Pulse Rate 90 11/27/24 07:25 Blood Pressure 101/78 11/27/24 07:25 Medical Decision Making Vital Signs Vital Signs: Vital Signs Pulse Rate 82 11/27/24 07:24 Blood Pressure 114/59 L 11/27/24 07:24 Pulse Rate 90 11/27/24 07:25 Blood Pressure 101/78 11/27/24 07:25 Lab Data 11/27/24 07:33 11/27/24 07:33 Labs: Lab Results 11/27/24 11/27/24 Range/Units 07:33 07:35 WBC 8.0 (4.5-10.0) K/mm3 RBC 4.34 (4.2-5.4) M/mm3 Hgb 13.6 (12.0-15.0) g/dL Hct 39.8 (37.0-47.0) % MCV 91.7 (80-100) fl MCH 31.3 (26-34) pg MCHC 34.2 (32-36) g/dl RDW 12.1 (11.5-14.5) % Plt Count 188 (150-375) k/mm3 MPV 9.4 (7.4-10.4) fl Immature Gran % (Auto) 0.3 (0-0.5) % Neut % (Auto) 63.6 (45.5-73.1) % Lymph % (Auto) 14.4 L (18.3-44.2) % [place] % (Auto) 6.8 (2.6-8.5) % Eos % (Auto) 14.4 H (0-4.4) % Baso % (Auto) 0.5 (0.2-1.2) % Lymph # (Auto) 1.15 (0.9-3.2) K/mm3 [place] # (Auto) 0.5 (0.1-0.6) K/mm3 Eos # (Auto) 1.2 H (0-0.3) K/mm3 Baso # (Auto) 0.0 (0.0-0.1) K/mm3 Abs Immat Gran (auto) 0.02 (0.00-0.031) K/mm3 Absolute Neuts (auto) 5.1 (1.3-6.7) K/mm3 Absolute Nucleated RBC 0.000 (0.0-0.012) K/mm3 Nucleated RBC % 0.0 (0.0-0.2) % Sodium 136 L (137-145) mmol/L Potassium 4.0 (3.4-5.0) mmol/L Chloride 100 (98-107) mmol/L Carbon Dioxide 29 (22-30) mmol/L Anion Gap 7 (4-12) mmol/L BUN 15 (7-17) mg/dL Creatinine 1.00 (0.7-1.0) mg/dL Estim Creat Clear Calc 44 ml/min Estimated GFR 56 L (59 - ) Glucose 121 H (65-110) mg/dL Calcium 9.4 (8.4-10.2) mg/dL Total Bilirubin 0.4 (0.2-1.3) mg/dL AST 34 (14-36) U/L ALT 34 (6-35) U/L Alkaline Phosphatase 67 (38-126) U/L Total Protein 7.0 (6.3-8.2) g/dL Albumin 4.0 (3.5-5.1) g/dL Urine Color Yellow (Yellow) Urine Appearance Clear (Clear) Urine pH 7.0 (5.0-9.0) Ur Specific [place] 1.017 (1.001-1.035) Urine Protein Negative (Negative) mg/dL Urine Glucose (UA) Negative (Negative) mg/dL Urine Ketones Negative (Negative) mg/dL Ur Blood (Man) Negative (Negative) Urine Nitrate Negative (Negative) Urine Bilirubin Negative (Negative) Urine Urobilinogen 0.2 (<2.0) mg/dL Leukocyte Esterase Rfl Negative (Negative) NEVIN/UL Imaging Data Radiologist's impression: ITS Impressions Head CT 11/27/24 07:38 Impression: No significant abnormality seen. ECG Data EKG #1: ECG completion date: 11/27/24 ECG completion time: 08:12 EKG Interpretation: normal rate (74), sinus rhythm, normal QRS, normal QT and NL axis Discharge Plan Discharge Clinical Impression: Vertigo Patient Disposition: Home, Self-Care Condition: Stable Instructions: Vertigo (ED) Additional Instructions: Return the ER if you have fever 100.4? F, you develop chest pain with shortness of breath, or have additional concerns. Patient Language: Chilean Prescriptions: New meclizine 12.5 mg tablet 12.5 mg PO TID PRN (Reason: dizziness) Qty: 14 0RF No Action estrogens-methyltestosterone 0.625-1.25 mg tablet 1 tablet PO [id number] testosterone 75 mg pellet 150 mg SUB-Q [id number] Rx Instructions: as a single dose thyroid (pork) [[place]eral Thyroid] 90 mg tablet 90 mg PO DAILY spironolactone 100 mg tablet 100 mg PO BID Patient Comments: 100mg IN AM, 50MG IN PM Takes to prevent hair growth related to testosterone. calcium carbonate-vitamin D3 [Calcium 600 with Vitamin D3] 600 mg(1,500mg) - 500 unit capsule 1 cap PO BID polyethylene glycol 3350 [Miralax] 17 gram/dose powder 17 g PO DAILY bimatoprost [Latisse] 0.03 % drops with applicator 1 applic topical DAILY Qty: 5 3RF B Complex-Vitamin B12 1 tablet PO DAILY tramadol 50 mg tablet 50 mg PO Q6H PRN (Reason: pain) Qty: 12 0RF pantoprazole 40 mg tablet,delayed release (DR/EC) 40 mg PO QAM Qty: 30 0RF rosuvastatin 5 mg tablet 5 mg PO DAILY Qty: 90 1RF paroxetine HCl 12.5 mg tablet extended release 24 hr See Rx Instructions .ROUTE .COMPLEX Qty: 90 1RF Dose Instruction: TAKE 1 TABLET EVERY MORNING Rx Instructions: TAKE 1 TABLET EVERY MORNING. Follow-up/Referrals: Aylin Bryant MD [Primary Care Provider] - Stand Alone Forms: Work/School Release IP
--- NOTE | 2024-11-27 08:00 | ECG_ITS ---
Test Date: 2024-11-27 08:12:27 Measurements Intervals [place] Rate: 74 P: 56 MA: 164 QRS: 60 QRSD: 87 T: 71 QT: 355 QTc: 396 Interpretive Statements SINUS RHYTHM No previous ECG available for comparison Electronically Signed On 11-28-2024 16:25:19 CDT by Eloise Balderas M.D.
[2024-11-27 08:45] VITALS: BP 112/64; PULSE 80; RESP 16; O2SAT 100
--- NOTE | 2024-11-27 08:53 | PC.NURSE ---
Patient ambulated to the restroom with steady gate and denied dizziness
[2024-11-27 09:22] VITALS: BP 101/53; PULSE 100; RESP 18; O2SAT 100
[2024-11-27 09:44] VITALS: BP 101/52; PULSE 79; RESP 16; O2SAT 99
== END 2024-11-27 09:48 | disposition home or self-care (01) ==
PROVIDERS: Emergency Provider Emergency Medicine; PCP Family Medicine
DX: R42 Dizziness and giddiness (principal); F32.A Depression, unspecified; Z96.642 Presence of left artificial hip joint; Z90.721 Acquired absence of ovaries, unilateral; Z90.79 Acquired absence of other genital organ(s); Z79.899 Other long term (current) drug therapy
CPT/HCPCS: 36415; 70450; 80053; 81003; 85025; 93005; 96360; 99284; A9270; J7030

== ENCOUNTER 2025-04-17 09:44 | Outpatient (CLI) | payer OTHER, BC, SELFPAY ==
--- NOTE | ~2025-04-17 | MM_ITS ---
EXAMINATION: MM scrn merritt implant BI w snow INDICATION: Asymptomatic, referred for screening mammogram COMPARISON: 08/02/2023 through 11/23/2017 TECHNIQUE: Digital Breast Tomosynthesis CC, MLO, and implant displaced CC and MLO views of Both breas ts were obtained with computer-aided detection to assist in interpretation of the study. FINDINGS: The breasts are almost entirely fatty. Bilateral breast Retropectoral Silicone implants in place appears intact. No focal dominant mass, architectural distortion, or suspicious microcalcifications are identified. There are no features to suggest malignancy. IMPRESSION: 1. No evidence of malignancy in the breasts. 2. Both breasts Retropectoral Silicone implants appears intact. Recommend continued screening mammography BI-RADS 1, NEGATIVE Reviewed, dictated and finalized at location B.
--- OUTSIDE RECORDS SUMMARY | 2025-04-17 10:08 | XMS_ITS | Clinical Summary ---
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 Gender Identity Female 06/25/2023 1:48 PM CDT [...] A M CDT Height 159.4 cm (5' 2.76) 07/05/2023 9:03 AM CD T Body Mass [...] 2024 06/20/2021, 09/20/2020, 08/30/2020 Influenza Vaccine (#1) 2025 Pneumococcal vaccine <65 Aged Out No longer eligible based on patient's age to complete this topic Insurance [employer] [place] [employer] [facility]US [facility] HMO/PPO Address: [address] [address] [place] [address] BLUE ACCESS [place] [facility] CHOICE PLUS [facility] HMO/PPO Address: [address] [address] [place] [address] Care Teams Automotive Lot Attendant Relationship Specialty Start Date End Date Aylin Bryant MD PCP - General Family Medicine 04/15/17
--- OUTSIDE RECORDS SUMMARY | 2025-04-17 10:08 | XMS_ITS | Clinical Summary ---
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
--- OUTSIDE RECORDS SUMMARY | 2025-04-17 10:08 | XMS_ITS | Referral Summary ---
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 Gender Identity Female 06/25/2023 1:48 PM CDT [...] Plan of Treatment Not on file Insurance [facility] [place] [facility] Member Subscriber Plan / Payer (Ef fective 2018-Present) Name:Shannon Becerra Relation to Subscriber:Spouse Name:STEVEN BECERRA Date of :1989 (Home) Address: [address] [place] [address] Payer ID:[id number] (NAIC) Type:[employer] Address: [address] CHOICE PLUS [facility] OOS Member Subscriber Plan / Payer (Ef fective 2018-Present) Name:Shannon Becerra Relation to Subscriber:Spouse Name:STEVEN BECERRA Date of :1989 (Home) Address: [address] [place] [address] Payer ID:[id number] (NAIC) Type:[employer] Address: [address] CHOICE PLUS [place] [phone] Care Teams Express Manager Relationship Specialty Start Date End Date Aylin Bryant MD PCP - General Family Medicine 04/15/17
--- OUTSIDE RECORDS SUMMARY | 2025-04-17 10:08 | XMS_ITS | Encounter Summary ---
Author Organization 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
== END 2025-04-17 09:45 | disposition home or self-care (01) ==
LOC: ANHIMG 09:45
PROVIDERS: PCP Family Medicine; Visit Provider Family Medicine
DX: Z12.31 Encounter for screening mammogram for malignant neoplasm of breast (principal)
CPT/HCPCS: 77063; 77067

== ENCOUNTER 2025-07-10 08:16 | Outpatient (CLI) | payer OTHER, BC, SELFPAY ==
--- OUTSIDE RECORDS SUMMARY | 2000-07-07 19:00 | XMS_ITS | Continuity of Care Document ---
Author Organization [facility] Address [address] [facility] [address] [place] [address] Phone Care Team Providers Care Assembler Golf Wood Head Name Role Phone Larry Ahn MD, FACS Unavailable Unavailab le Advance Directives Directive Yes / No Effective Date File Name No Information Encounters Encounter Description Practice Location Reason(s) For Visit Diagnoses Date Provider Providers Copied on Encounter [facility], [address], [place], [place], [id number], [place] tel:[phone] [facility] No Information [phone] Anabelle Juarez. [address] [facility], [address], [place], [place], [id number], [place]. tel:[phone] Family History Family Member Type Diagnosis Age At Onset No Information Payers Payer name Insurance type Covered libertarian ID Authoriza tion(s) No Information Social History Type Description Quantity Date Captured Comments Sex Female Smoking Status No Information Chief Complaint And Reason For Visit No Information Reason For Referral Reason For Referral No Information History Of Present Illness Encounter Date Complaint History Of Prese nt Illness No Information Functional Status Date Functional Assessmen t No Information Instructions Date Instruction Additional Infor mation No Information Assessments Type Assessment Date No Information Patient Care Teams Name Effective Dates (start - stop) Status Members No Information
--- OUTSIDE RECORDS SUMMARY | 2025-07-10 08:31 | XMS_ITS | Encounter Summary ---
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
--- OUTSIDE RECORDS SUMMARY | 2025-07-10 08:31 | XMS_ITS | Clinical Summary ---
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 Gender Identity Not on file Sexual Orientation [...] Vaccines (1 of 2) 01/09/2012 COVID-19 Vaccine (2024-2 6 season) 2025 Influenza Adult (#1) 2025 RSV Immunization or 60+ Years (1 - 1-dose 75+ series) 2037 Hepatitis A Vaccines Aged Out No long er eligible based on patient's age to complete this topic Meningococcal B Vaccine Aged Out No l onger eligible based on patient's age to complete this topic Meningococcal Vaccine Aged Out No lenard seamus eligible based on patient's age to complete this topic RSV Immunizations Under 20 Months Aged Out No longer eligible based on patient's age to complete this topic
--- OUTSIDE RECORDS SUMMARY | 2025-07-10 08:31 | XMS_ITS | Clinical Summary ---
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
[2025-07-10 09:05] LABS: Anion Gap 6 mmol/L (4-12); Blood Urea Nitrogen 20 mg/dL (7-17); Calcium 9.3 mg/dL (8.4-10.2); Carbon Dioxide 28 mmol/L (22-30); Chloride 98 mmol/L (98-107); Estimated Glomerular Filt Rate > 60; Glucose 84 mg/dL (65-110); Potassium 4.3 mmol/L (3.4-5.0); Sodium 132 mmol/L (137-145)
== END 2025-07-10 08:17 | disposition home or self-care (01) ==
PROVIDERS: Anesthesiology; PCP Family Medicine; Visit Provider Plastic Surgery
DX: Z79.899 Other long term (current) drug therapy (principal)
CPT/HCPCS: 36415; 80048

== ENCOUNTER 2025-07-18 00:52 | Day surgery (SDC) | payer OTHER, BC, SELFPAY ==
--- NOTE | 2025-07-09 09:30 | SUR.PREOP ---
[facility] has started construction of its new state of the art ER which will open Spring 2026. With this, we anticipate parking may be a challenge for some our surgical patients and families. Parking spaces are limited but are available for all Surgical, obstetrics, and ER patients sharing this lot. If you arrive and find you are having a hard time finding a parking space, please note that we understand the challenges, please drive around the hospital and park near Hospital Entrance 1. When you enter this entrance, you can ask a volunteer to direct or take you back to the surgical waiting area to check in. We appreciate everyone?s understanding of these expected challenges while we build for your future. Report to the Outpatient Waiting Room, entrance under the green pavilion located off [address], at time _915AM_ on date _07/18/25__. Planned Procedure Time: __1115AM__.? Time changes happen often and if your time is changed the preop area will call you the afternoon before. - You and your visitor will be asked to self-screen and do not enter if you have any COVID symptoms. Please call surgeon if you need to reschedule. - A mask is optional within the hospital at this time. Patients may have clear liquids (water, carbonated beverages, clear teas, apple juice) until 3 hours prior to surgery with a maximum of 20 ounces. - No food from midnight until time of surgery and no smoking, or chewing tobacco (or any form of nicotine). No chewing gum, candy or mints. Take only the following medications with a SIP of water on the morning of surgery: _paroxetine, armour thyroid 90mg__ DO NOT STOP ANY OF YOUR OTHER PRESCRIPTION MEDICATIONS PRIOR TO SURGERY EXCEPT THE FOLLOWING Hold all vitamins and supplements for 3 days per anesthesiologist. Medications to discontinue per physician _none__ Date to take last dose of vitamins_07/14/25_ Please no make-up, nail english, hairspray, perfume, deodorant, or body powder the day of surgery.? No jewelry (including any body piercings) or valuables the day of surgery, leave them at home.? Please take a shower or bath the night before, or the morning of, surgery with an antibacterial soap.? Wear comfortable, loose fitting clothing.? - Jewelry must be removed prior to entering the operating room.? Rings and piercings that are not removed may be cut off. - The hospital will not accept responsibility for valuables.? - Please leave all valuables, including medications, at home the day of surgery. If you are going home after surgery, a licensed crew car driver must drive you home.? - NO public transportation without another adult if you receive anesthesia. - We recommend that an adult stay with you for 24 hours following discharge. - We also recommend that you do not drive, make important decision, drink alcoholic beverages, or take any drugs that were not prescribed by your health care provider for at least 24 hours after your discharge time. For Pediatric surgeries, we recommend two adults accompany the child home. Telephone instructions given to __Shannon___and asked if any additional questions and then verbalized understanding. Patient advised to call surgeon office or pre surgery nurse liaison [phone] if any additional questions.
[2025-07-09 09:31] VITALS: BMI 25.1
--- OUTSIDE RECORDS SUMMARY | 2025-07-18 00:56 | XMS_ITS | Clinical Summary ---
Author Organization 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
--- OUTSIDE RECORDS SUMMARY | 2025-07-18 00:56 | XMS_ITS | Clinical Summary ---
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
--- OUTSIDE RECORDS SUMMARY | 2025-07-18 00:56 | XMS_ITS | Encounter Summary ---
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
--- NOTE | 2025-07-18 06:37 | PM.HPGS ---
History of Present Illness History of Present Illness Chief complaint: right carpal tunnel syndrome Narrative: Patient seen and examined in pre-operative holding area. No interval change in medical history or symptoms. Patient recalls previous discussion of benefits and alternatives to procedure. Continues to desire to proceed with right endoscopic possible open carpal tunnel release. Reviewed procedure, post-op expectations and risks including but not limited to bleeding, infection, injury to tendon/nerve/vessel, decreased hand function, stiffness, RSD, no change or worsening of symptoms. I discussed the possible use of assistants and their participation in the case. Patient stated understanding and signed the consent form wishing to proceed. Review of Systems Review of Systems: All systems reviewed & are unremarkable except as noted in HPI and below PMFSH Past Medical History Medical History Transient lingual papillitis Erosive gastritis Impingement syndrome of right shoulder History of vaginal delivery x 2 Chronic depression Diverticulosis of colon (without mention of hemorrhage) Endometriosis, site unspecified Ganglion, left hand Surgical History Surgical History H/O removal of cyst Left foot Status post arthroscopy of right shoulder History of arthroscopy of right shoulder (~10/2020) History of breast augmentation (~2011) History of left salpingo-oophorectomy History of total hysterectomy History of cholecystectomy History of hip replacement (~2007) Left Hx of abdominoplasty (~2018) Family History Family History Father Family history of hypercholesterolemia Hypertension Family history of alcoholism Grandparent Hypertension Family history of alcoholism Cerebrovascular accident Family history of malignant neoplasm of breast Sibling Suicide Substance abuse Social History Social History Smoking status: Never smoker Second hand tobacco smoke exposure: No Alcohol intake: never Substance use: never Substance use type: does not use Do You Feel Safe in your Home?: Yes Lack of Transportation: No Lack of Food: Never True Current Housing: I Have Housing Concerned About Future Housing: No Difficulty Paying Gas/Electric Bills: No Difficulty Paying for Meds: No Currently Unemployed: No Education: Bachelor's Degree Difficulty w/ Childcare or Family Care: No Living arrangements: with family Spiritual care concerns: No Meds Home Medications and Allergies Home Medications ?Medication ?Instructions ?Recorded ?Confirmed ?Type esterified 1 tablet PO [id number] 02/13/20 07/18/25 History estrogens-methyltestosterone 0.625 mg-1.25 mg tablet testosterone 75 mg implant pellet 150 mg subcut [id number] 02/13/20 07/18/25 History B Complex-Vitamin B12 1 tablet PO DAILY 10/09/20 07/18/25 History calcium 600 mg (as 1 cap PO BID 04/01/21 07/18/25 History carbonate)-vitamin D3 12.5 mcg (500 unit) capsule (Calcium with Vit D3) spironolactone 100 mg tablet 100 mg PO BID 04/01/21 07/18/25 History thyroid (pork) 90 mg tablet 90 mg PO DAILY 04/01/21 07/18/25 History ([place] Thyroid) pantoprazole 40 mg tablet,delayed 40 mg PO QAM #30 tabs 09/29/21 07/18/25 Rx release polyethylene glycol 3350 17 17 g PO DAILY 04/02/22 07/13/25 History gram/dose oral powder (Miralax) bimatoprost 0.03 % drops with 1 applic topical DAILY #5 mL 10/19/24 07/13/25 Rx applicator, eyelash base (Latisse) rosuvastatin 5 mg tablet 5 mg PO DAILY #90 tabs 02/19/25 07/18/25 Rx paroxetine HCl 12.5 mg See Rx Instructions .Route 05/07/25 07/18/25 Rx tablet,extended release 24 hr .COMPLEX #90 tabs Allergies Allergy/AdvReac Type Severity Reaction Status Date / Time No Known Allergies Allergy Verified 07/18/25 10:27 Exam Narrative: unchanged Assessment and Plan Assessment and plan (1) Bilateral carpal tunnel syndrome: Code(s): G56.03 - Carpal tunnel syndrome, bilateral upper limbs Status: Acute Assessment and Plan: cont as abovve
--- NOTE | 2025-07-18 06:38 | W.PM.PROC2 ---
Procedure Note - Detailed Date of Procedure 07/24/25 Pre-op Diagnosis right carpal tunnel syndrome Post-op Diagnosis Same Procedure Performed right ectr Surgeon Roddy Medel MD Bariatric Program Coordinator Aneesh Haney PA-C Anesthesia MAC Description of Procedure INFORMED CONSENT: The patient was seen and examined and marked in the pre-op area.? The patient signed the consent form. PROCEDURE IN DETAIL:The patient taken back to OR on the stretcher in supine position. Time out performed with anesthesia, surgeon and staff agreeing on patient's name site and surgery to be performed SCDs were placed on the lower extremities and inflated. A tourniquet was placed on {right} upper extremity and antibiotics given IV After anesthesia administered sedation I injected {5}cc 1%lido with epi and 0.5% marcaine plain at the operative site The?{right upper extremity}?was prepped and draped in sterile fashion the??{right upper extremity} was? exsanguinated with Esmarch bandage and tourniquet inflated to 250mmHg I made a transverse incision in the {right} volar distal wrist crease through skin and dermis with 15 blade scalpel.? Littler scissors spread down to antebrachial fascia. A small incision was made in antebrachial fascia allowing access to Carpal tunnel. I proceeded with sequential dilation staying in line with the ring finger and hugging the hook of the hamate.? I then used the synovial elevator to free any adhesions from the underside of the transverse carpal ligament. Next I was able to insert the Microaire endoscopic carpal tunnel device with direct visualization of the transverse fibers on the monitor and proceeded with complete segmental retrograde release of the ligament in its entirety.? I irrigated with normal saline and closed with 4-0 monocryl for dermis and subcuticular closure. A dressing of Dermabond, 4x4, beth, and a volar splint was applied for patient safety, security, and comfort and secured with an edda bandage after the tourniquet was let down noting the hand was warm and well perfused. The patient was then awaken from anesthesia and transferred to the recovery room in stable condition.? Complications - none EBL- 0cc Disposition - home in stable condition Aneesh Haney PA-C was essential for positioning, retraction, closure and dressing placement. [facility] Billing Surgery - Charge Forward: Surgery Billing ([id number] for aneesh)
[2025-07-18 09:15] VITALS: BP 102/51; PULSE 71; RESP 16; TEMP 36.6; O2SAT 99
[2025-07-18] MEDS: ACETAMINOPHEN 500 MG TABLET 1000 MG PO (09:25)
--- NOTE | 2025-07-18 11:15 | WPDANESEPPF ---
Anes - Initial Pre Proc Eval Procedure: Operation Date: 07/18/25 11:15 Proposed Procedures p Right Endoscopic Carpal Tunnel Release, Possible Open - Roddy Medel MD Date/Time: 07/18/25 11:15 Surgeon: Roddy Medel MD Pre Op Diagnosis: right carpal tunnel syndrome Patient Data Age: 65 Gender: F Height: 1.55 m Weight: 62.4 kg Last Vital Signs Temp 97.8 F 07/18/25 09:15 Pulse 71 07/18/25 09:15 Resp 16 07/18/25 09:15 BP 102/51 L 07/18/25 09:15 Pulse Ox 99 07/18/25 09:15 O2 Del Method Room Air 07/18/25 09:15 Allergies Allergy/AdvReac Type Severity Reaction Status Date / Time No Known Allergies Allergy Verified 07/18/25 10:27 Home Medications ?Medication ?Instructions ?Recorded ?Confirmed ?Type esterified 1 tablet PO [id number] 02/13/20 07/18/25 History estrogens-methyltestosterone 0.625 mg-1.25 mg tablet testosterone 75 mg implant pellet 150 mg subcut [id number] 02/13/20 07/18/25 History B Complex-Vitamin B12 1 tablet PO DAILY 10/09/20 07/18/25 History calcium 600 mg (as 1 cap PO BID 04/01/21 07/18/25 History carbonate)-vitamin D3 12.5 mcg (500 unit) capsule (Calcium with Vit D3) spironolactone 100 mg tablet 100 mg PO BID 04/01/21 07/18/25 History thyroid (pork) 90 mg tablet 90 mg PO DAILY 04/01/21 07/18/25 History ([place] Thyroid) pantoprazole 40 mg tablet,delayed 40 mg PO QAM #30 tabs 09/29/21 07/18/25 Rx release polyethylene glycol 3350 17 17 g PO DAILY 04/02/22 07/13/25 History gram/dose oral powder (Miralax) bimatoprost 0.03 % drops with 1 applic topical DAILY #5 mL 10/19/24 07/13/25 Rx applicator, eyelash base (Latisse) rosuvastatin 5 mg tablet 5 mg PO DAILY #90 tabs 02/19/25 07/18/25 Rx paroxetine HCl 12.5 mg See Rx Instructions .Route 05/07/25 07/18/25 Rx tablet,extended release 24 hr .COMPLEX #90 tabs Patient hx anesthesia problems: none Family hx anesthesia problems: none Results Review: All pre-operative results and documents have been reviewed as part of the pre-operative evaluation. [facility] Past Medical History Medical History Transient lingual papillitis Erosive gastritis Impingement syndrome of right shoulder History of vaginal delivery x 2 Chronic depression Diverticulosis of colon (without mention of hemorrhage) Endometriosis, site unspecified Ganglion, left hand Surgical History Surgical History H/O removal of cyst Left foot Status post arthroscopy of right shoulder History of arthroscopy of right shoulder (~10/2020) History of breast augmentation (~2011) History of left salpingo-oophorectomy History of total hysterectomy History of cholecystectomy History of hip replacement (~2007) Left Hx of abdominoplasty (~2017) Family History Family History Father Family history of hypercholesterolemia Hypertension Family history of alcoholism Grandparent Hypertension Family history of alcoholism Cerebrovascular accident Family history of malignant neoplasm of breast Sibling Suicide Substance abuse Social History Social History Smoking status: Never smoker Second hand tobacco smoke exposure: No Alcohol intake: never Substance use: never Substance use type: does not use Do You Feel Safe in your Home?: Yes Lack of Transportation: No Lack of Food: Never True Current Housing: I Have Housing Concerned About Future Housing: No Difficulty Paying Gas/Electric Bills: No Difficulty Paying for Meds: No Currently Unemployed: No Education: Bachelor's Degree Difficulty w/ Childcare or Family Care: No Living arrangements: with family Spiritual care concerns: No Anes - Eval Final PreProcedure Day of Procedure 07/18/25 11:15 Patient weight: normal Lungs: clear to auscultation Airway: Mallampati scale class II Neurological: alert and oriented Last oral intake: >/= 8 hours ASA classification: II Emergent: no Anesthetic plan: proceed Anesthesia type and monitoring: general GIVS and standard monitoring Results Review: All pre-operative results and documents have been reviewed as part of the pre-operative evaluation. Informed Consent: The patient's anesthetic plan and its attendant risks and benefits were discussed with the patient/family/POA. Questions were solicited and answers provided to the satisfaction of the patient/family/POA.
[2025-07-18] MEDS: ceFAZolin 2 GM in SODIUM CHLORIDE 0.9% IV 50 ML 100 ML IVPB (11:20)
[2025-07-18] MEDS: LIDO 1%/EPINEPHRINE 1:100,000 20 ML VIAL 3 ML INFILTRATE (11:30)
[2025-07-18 11:37] VITALS: BP 87/46; PULSE 79; RESP 14; O2SAT 95
[2025-07-18 12:07] VITALS: BP 90/55; PULSE 80
[2025-07-18 12:30] VITALS: BP 91/54; PULSE 74
== END 2025-07-18 12:35 | disposition home or self-care (01) ==
PROVIDERS: PCP Family Medicine; Visit Provider Plastic Surgery
PROC: 01N54ZZ Release Median Nerve, Percutaneous Endoscopic Approach (ICD-10-PCS; CPT 29848; principal; 2025-07-18 11:15)
DX: G56.01 Carpal tunnel syndrome, right upper limb (principal); F32.A Depression, unspecified; N80.9 Endometriosis, unspecified; Z79.899 Other long term (current) drug therapy; Z98.890 Other specified postprocedural states; Z90.49 Acquired absence of other specified parts of digestive tract; Z87.19 Personal history of other diseases of the digestive system; Z80.3 Family history of malignant neoplasm of breast
CPT/HCPCS: 29848; J0690; A9270; J2003; J2004; J2250; J2704; J3010